=== PATIENT | male | born 1945 | race Caucasian/White ===

== ENCOUNTER 2018-03-16 14:51 | Inpatient (IN) | payer MEDICARE, BC ==
[2018-03-16] VITALS (12 sets, daily range): BP systolic 82–135; BP diastolic 40–78; PULSE 56–88; RESP 12–18; TEMP 97.6–98.2; O2SAT 95–100
[~2018-03-16] VITALS: Ht 182.9 cm; Wt 98.6 kg
[~2018-03-16 14:51] MED LIST: BAYE325T3 PO; BENI40TA30 PO; CLOP75 PO; FURO20 PO; GLUC2.5T2 PO; HUMALOGP SQ; LEVA500T PO; LEVO100T4 PO; NITR0.4S SL; OXYC40; PRIL20CA PO
[2018-03-16] MEDS ORDERED: SODIUM CHLORID 0.9% 500 ML INJ 500 ML IV ONE (15:15)
[2018-03-16] MEDS ORDERED: SODIUM CHLOR 0.9% 250 ML INJ 250 ML IV ONE (15:30)
[2018-03-16 15:43] LABS: AUTOMATED NEUTROPHIL # 3.1 TH/MM3 (1.8-7.7); BASOPHIL % 0.6 % (0.0-2.0); EOSINOPHIL # 0.1 TH/MM3 (0-0.4); EOSINOPHIL % 2.4 % (0.0-4.0); HEMATOCRIT 21.1 % (39.0-51.0); LYMPH % 28.9 % (9.0-44.0); LYMPHOCYTE # 1.7 TH/MM3 (1.0-4.8); MEAN CELL VOLUME 87.1 FL (80.0-100.0); MEAN CORPUSCULAR HEMOGLOBIN 28.5 PG (27.0-34.0); MEAN CORPUSCULAR HGB CONC 32.8 % (32.0-36.0); MEAN PLATELET VOLUME 7.8 FL (7.0-11.0); MONO % 14.9 % (0.0-8.0); MONOCYTE # 0.9 TH/MM3 (0-0.9); NEUT % 53.2 % (16.0-70.0); PLATELET COUNT 177 TH/MM3 (150-450); RED BLOOD COUNT 2.43 MIL/MM3 (4.50-5.90); RED CELL DISTRIBUTION WIDTH 20.1 % (11.6-17.2); WHITE BLOOD COUNT 5.9 TH/MM3 (4.0-11.0)
--- NOTE | 2018-03-16 15:43 | PD ---
HPI Chief Complaint: Abnormal Results Time Seen by Provider: 15:00 Travel History International Travel<30 days: No Contact w/Intl Traveler<30days: No Traveled to known affect area: No History of Present Illness HPI 72-year-old male with a history of heart disease, anemia, chronic cellulitis to his lower legs that presents to the ED for evaluation of low hemoglobin. Per patient she had blood work done by home nurse that show a hemoglobin of 6.2 per patient. Per patient he was told to come here to get a transfusion. He has a history of anemia in the past and he states that he has had transfusions in the past. Per patient but never been able to find out why he is anemic. His only symptom today is that he feels weak and tired and per family has been having this for the past week. He denies any blood in his stool or any nausea or vomiting. He denies any abdominal pain. No chest pain or shortness of breath. He has feels weak and tired. She gets home health to help him with his chronic medical conditions including his wounds to his leg secondary to cellulitis. States that yesterday he had some abdominal pain for the past 3 days that apparently went away on its own yesterday. He has had normal bowel movements per patient. Allergy to codeine, morphine and niacin. States that currently has no pain. He apparently had a pacemaker placed by Dr. Orr a month ago. Per patient he does take a blood thinner. PFSH Past Medical History Arthritis: Yes Blood Disorders: No Anxiety: No Depression: No Heart Rhythm Problems: Yes Cancer: Yes (skin cancers) Cardiovascular Problems: Yes (cad,irregular heart beat) High Cholesterol: Yes Chemotherapy: No Chest Pain: No COPD: Yes Diabetes: Yes Patient Takes Glucophage: No Endocrine: Yes Gastrointestinal Disorders: Yes GERD: Yes Glaucoma: No Genitourinary: No Hepatitis: No Hiatal Hernia: Yes Hypertension: Yes Immune Disorder: No Implanted Vascular Access Dvce: Yes Musculoskeletal: Yes Neurologic: Yes Psychiatric: No Reproductive: No Respiratory: Yes Migraines: Yes Radiation Therapy: No Sleep Apnea: Yes (does not use cpap) Thyroid Disease: Yes Influenza Vaccination: Yes Past Surgical History Abdominal Surgery: Yes (hemmoroidectomy,hernia repair) Body Medical Devices: cardiac stents Cardiac Surgery: Yes (triple by-pass,pacemaker,5 cardiac stents) Coronary Artery Bypass Graft: Yes (TRIPLE BYPASS) Coronary Stent: Yes (X 5) Pacemaker: Yes Thoracic Surgery: Yes (CABG 2001) Other Surgery: Yes Social History Alcohol Use: No Tobacco Use: No (FORMER) Substance Use: No Allergies-Medications (Allergen,Severity, Reaction): Coded Allergies: morphine (Verified Allergy, Severe, HALLUCINATIONS, 03/16/18) codeine (Verified Allergy, Unknown, other, 03/16/18) hallucination niacin (Verified Allergy, Unknown, UNKNOWN, 03/16/18) Reported Meds & Prescriptions Reported Meds & Active Scripts Active Levaquin 500 Mg Tab (Levofloxacin) 500 Mg Tab 500 Mg PO DAILY 6 Days Reported Nitrostat (Nitroglycerin) 0.4 Mg Subl 0.4 Mg SL PRN PRN 1 TAB SL EVERY 5 MINS X 3 PRN CHEST PAIN Lasix 20 Mg Tab (Furosemide) 20 Mg Tab 40 Mg PO DAILY Humalog Insulin Supplemental Scale (Insulin Human Lispro) 100 Units/Ml Inj 1-9 Units SQ TIDACHS Low Dose Lispro Insulin Sliding Scale = Max dose at bedtime:( )units; Max dose at 3am:( ); blood sugars less than 70 take zero insulin units; blood sugars 150-199 take 1 unit; blood sugars 200-249 take 3 units; blood sugars 250-299 take 5 units; blood sugars 300-349 take 7 units; blood sugars greater than 349 take 9 units Benicar (Olmesartan) 40 Mg Tab 40 Mg PO DAILY Leah Aspirin (Aspirin) 325 Mg Tab 81 Mg PO DAILY OxyCONTIN ER (Oxycodone HCl) 40 Mg Tabcr 40 Mg .XX Q 8HRS PRN Prilosec 20 mg (Omeprazole) 20 Mg Capcr 20 Mg PO PRN Plavix (Clopidogrel Bisulfate) 75 Mg Tab 75 Mg PO DAILY Levothyroxine 100 mcg (Levothyroxine Sodium) 100 Mcg Tab 100 Mcg PO DAILY Glucovance 2.5/500 (Glyburide/Metformin) 2.5 Mg-500 Mg Tab 2 Tab PO BID Review of Systems Except as stated in HPI: all other systems reviewed are Neg Physical Exam Narrative GENERAL: SKIN: Warm and dry. Patient does have a stage I healing decubitus ulcer on the sacrum HEAD: Atraumatic. Normocephalic. EYES: Pupils equal and round. No scleral icterus. No injection or drainage. ENT: No nasal bleeding or discharge. Mucous membranes pink and moist. Tongue is midline. No uvula deviation. NECK: Trachea midline. No JVD. CARDIOVASCULAR: Regular rate and rhythm. No murmurs, S3, S4. RESPIRATORY: No accessory muscle use. Clear to auscultation. Breath sounds equal bilaterally. GASTROINTESTINAL: Abdomen soft, non-tender, nondistended. Hepatic and splenic margins not palpable. MUSCULOSKELETAL: Extremities without clubbing, cyanosis, or edema. No obvious deformities. Full range of motion of the upper and lower extremities bilaterally. 2+ pulses bilaterally. NEUROLOGICAL: Awake and alert. No obvious cranial nerve deficits. Motor grossly within normal limits. Five out of 5 muscle strength in the arms and legs. Normal speech. PSYCHIATRIC: Appropriate mood and affect; insight and judgment normal. Data Data Last Documented VS Vital Signs Date Time Temp Pulse Resp B/P (MAP) Pulse Ox O2 Delivery O2 Flow Rate FiO2 03/16/18 15:06 78 17 123/57 (79) 03/16/18 15:06 97.7 98 Room Air Orders Orders Electrocardiogram (03/16/18 15:) Complete Blood Count With Diff (03/16/18 15:) Comprehensive Metabolic Panel (03/16/18 15:) Prothrombin Time / Inr (Pt) (03/16/18 15:) Act Partial Throm Time (Ptt) (03/16/18 15:) Urinalysis - C+S If Indicated (03/16/18 15:) Magnesium (Mg) (03/16/18 15:01) Iv Access Insert/Monitor (03/16/18 15:) Ecg Monitoring (03/16/18 15:) Oximetry (03/16/18 15:) Orthostatic Vital Signs (03/16/18 15:) Type And Screen (03/16/18 15:01) Sodium Chlorid 0.9% 500 Ml Inj (Ns 500 M (03/16/18 15:15) Red Blood Cells (Rbc) (03/16/18 15:21) Blood Product Administration (03/16/18 15:21) Sodium Chlor 0.9% 250 Ml Inj (Ns 250 Ml (03/16/18 15:30) Ckmb (Isoenzyme) Profile (03/16/18 15:34) Troponin I (03/16/18 15:34) Diet Heart Healthy (03/16/18 Dinner) Diet Diabetic (03/16/18 Dinner) Vital Signs (Adult) RM.Q4H (03/16/18 16:50) Iron/Tibc Profile (03/16/18 16:50) Ferritin (03/16/18 16:50) Occult Blood (Hemoccult) Stool (03/16/18 16:50) Hemoglobin (Hgb) (03/17/18 06:00) Hematocrit (Hct) (03/17/18 06:00) Blood Glucose Goal (Criteria) (03/16/18 16:50) Hypoglycemia 70 Mg/Dl Or < (03/16/18 16:50) Notify Dr: Other (03/16/18 16:50) Dextrose 50% In Wiley (Vial) Inj (D50w (Vi (03/16/18 17:00) Glucagon Inj (Glucagon Inj) (03/16/18 17:00) Admit Order (Ed Use Only) (03/16/18 16:53) Insulin Aspart Supplemtl Scale (Novolog (03/16/18 17:00) Levothyroxine (Synthroid) (03/17/18 06:00) Labs Laboratory Tests Test 03/16/18 15:15 03/16/18 16:30 White Blood Count 5.9 TH/MM3 Red Blood Count 2.43 MIL/MM3 Hemoglobin 6.9 GM/DL Hematocrit 21.1 % Mean Corpuscular Volume 87.1 FL Mean Corpuscular Hemoglobin 28.5 PG Mean Corpuscular Hemoglobin Concent 32.8 % Red Cell Distribution Width 20.1 % Platelet Count 177 TH/MM3 Mean Platelet Volume 7.8 FL Neutrophils (%) (Auto) 53.2 % Lymphocytes (%) (Auto) 28.9 % Monocytes (%) (Auto) 14.9 % Eosinophils (%) (Auto) 2.4 % Basophils (%) (Auto) 0.6 % Neutrophils # (Auto) 3.1 TH/MM3 Lymphocytes # (Auto) 1.7 TH/MM3 Monocytes # (Auto) 0.9 TH/MM3 Eosinophils # (Auto) 0.1 TH/MM3 Basophils # (Auto) 0.0 TH/MM3 CBC Comment DIFF FINAL Differential Comment Prothrombin Time 19.4 SEC Prothromb Time International Ratio 1.9 RATIO Activated Partial Thromboplast Time 38.4 SEC Blood Urea Nitrogen 58 MG/DL Creatinine 1.84 MG/DL Random Glucose 134 MG/DL Total Protein 7.1 GM/DL Albumin 3.1 GM/DL Calcium Level 8.6 MG/DL Magnesium Level 2.8 MG/DL Alkaline Phosphatase 110 U/L Aspartate Amino Transf (AST/SGOT) 15 U/L Alanine Aminotransferase (ALT/SGPT) 17 U/L Total Bilirubin 0.9 MG/DL Sodium Level 132 MEQ/L Potassium Level 4.1 MEQ/L Chloride Level 93 MEQ/L Carbon Dioxide Level 29.6 MEQ/L Anion Gap 9 MEQ/L Estimat Glomerular Filtration Rate 36 ML/MIN Total Creatine Kinase 14 U/L Troponin I 0.02 NG/ML MDM Medical Decision Making Medical Screen Exam Complete: Yes Emergency Medical Condition: Yes Medical Record Reviewed: Yes Interpretation(s) CBC & BMP Diagram 03/16/18 15:15 Total Protein 7.1, Albumin 3.1 L, Calcium Level 8.6, Magnesium Level 2.8 H, Alkaline Phosphatase 110, Aspartate Amino Transf (AST/SGOT) 15, Alanine Aminotransferase (ALT/SGPT) 17, Total Bilirubin 0.9 troponin and CK WNL Differential Diagnosis Rectal bleeding versus anemia versus symptomatic anemia versus ACS versus chest pain versus a typical chest pain Narrative Course 72-year-old male that presents to the ED for evaluation of low hemoglobin. Patient was properly examined and was found to have signs and symptoms consistent appears to be symptomatic hemoglobin. Hemoccult was done by me and was negative. Labs and imaging order. Patient was started on 2 doses of blood. Labs showed low hemoglobin. Patient will be started on blood. My attending Dr Mobley made aware of findings and agrees with plan. He recommends for units of blood given. This was told to the family and patient agree with plan. Patient was admitted for symptomatic anemia to Dr Mcclure who agreed with admission. HemaPrompt Point of Care Internal Pos. & Neg. Controls: Passed Fecal Specimen Occult Blood: Negative Diagnosis Primary Impression: Symptomatic anemia Admitting Information Admitting Physician Requests: Admit Alcides Shah March 16, 2018 15:43
[2018-03-16 15:50] LABS: HEMOGLOBIN 6.9 GM/DL (13.0-17.0); INTERNATIONAL NORMALIZED RATIO 1.9 RATIO; PROTHROMBIN TIME - PATIENT 19.4 SEC (9.8-11.6)
[2018-03-16 15:59] LABS: ALBUMIN 3.1 GM/DL (3.4-5.0); AST (GOT) 15 U/L (15-37); BICARBONATE 29.6 MEQ/L (21.0-32.0); BLOOD UREA NITROGEN 58 MG/DL (7-18); CALCIUM 8.6 MG/DL (8.5-10.1); CHLORIDE 93 MEQ/L (98-107); CREATININE 1.84 MG/DL (0.60-1.30); GLOMERULAR FILTRATION RATE 36 ML/MIN (>89); GLUCOSE,RANDOM 134 MG/DL (74-106); MAGNESIUM 2.8 MG/DL (1.5-2.5); SODIUM (NA) 132 MEQ/L (136-145)
[2018-03-16 16:00] LABS: ALT (GPT) 17 U/L (12-78)
[2018-03-16 16:02] LABS: ALKALINE PHOSPHATASE 110 U/L (45-117); TOTAL BILIRUBIN ADULT 0.9 MG/DL (0.2-1.0); TOTAL PROTEIN 7.1 GM/DL (6.4-8.2)
[2018-03-16] MEDS ORDERED: DEXTROSE 50% IN WATER 50 ML VIAL(D50) IV PUSH PRN (17:00)
[2018-03-16] MEDS ORDERED: GLUCAGON 1 MG/ML VIAL OTHER PRN (17:00)
[2018-03-16 17:02] LABS: TROPONIN I 0.02 NG/ML (0.02-0.05)
[2018-03-16] MEDS: INSULIN ASPART SUPPLEMENTAL SCALE SQ SCH ×2 (17:21→20:17)
--- NOTE | 2018-03-16 18:02 | HHI.HP ---
[facility] Service [facility] Primary Care Physician Cyrus Hawk MD Admission Diagnosis acute symptomatic anemia, hypotension, weakness Diagnoses: (1) Symptomatic anemia Diagnosis: Principal Chief Complaint: fatigue Travel History International Travel<30 Days: No Contact w/Intl Traveler <30 Da: No Traveled to Known Affected Are: No History of Present Illness patient is a 72 y/o male with history of atrial fibrillation- on Xarelto, hypertension, diabetes mellitus who presented to ER with fatigue. he says that he's been feeling weak for the past couple of days. he had a blood work today and was found to have a Hb of 6.3 for which he was advised to come to ER by his PCP. he denies any chest pain, sob, rectal bleed, black stools or nausea. however he says that he had some generalized abdominal pain which has almost resolved. Review of Systems Constitutional: COMPLAINS OF: Fatigue, DENIES: Fever, Weight loss, Chills, Night Sweats Eyes: DENIES: Blurred vision, Diplopia, Vision loss, Double Vision Ears, nose, mouth, throat: DENIES: Tinnitus, Vertigo, Throat pain, Epistaxis Respiratory: DENIES: Apneas, Cough, Snoring, Wheezing, Hemoptysis, Sputum production, Shortness of breath Cardiovascular: DENIES: Chest pain, Palpitations, Syncope, Dyspnea on Exertion , PND, Lower Extremity Edema, Orthopnea, Claudication Gastrointestinal: DENIES: Abdominal pain, Black stools, Bloody stools, Constipation, Diarrhea, Nausea, Vomiting, Difficulty Swallowing, Anorexia Genitourinary: DENIES: Urinary frequency, Urgency, Hematuria, Dysuria Musculoskeletal: DENIES: Joint pain, Muscle aches, Stiffness, Joint Swelling Integumentary: DENIES: Rash Neurologic: DENIES: Abnormal gait, Headache, Localized weakness, Paresthesias, Seizures, Speech Problems, Tremor, Poor Balance Psychiatric: DENIES: Anxiety, Confusion, Mood changes, Depression, Hallucinations, Agitation, Suicidal Ideation, Homicidal Ideation, Delusions Past Family Social History Past Medical History atrial fibrillation/ hypertension/ diabetes. Past Surgical History cardiac stent placement/ CABG Reported Medications Nitrostat (Nitroglycerin) 0.4 Mg Subl 0.4 Mg SL PRN PRN 1 TAB SL EVERY 5 MINS X 3 PRN CHEST PAIN Lasix 20 Mg Tab (Furosemide) 20 Mg Tab 40 Mg PO DAILY Humalog Insulin Supplemental Scale (Insulin Human Lispro) 100 Units/Ml Inj 1-9 Units SQ TIDACHS Low Dose Lispro Insulin Sliding Scale = Max dose at bedtime:( )units; Max dose at 3am:( ); blood sugars less than 70 take zero insulin units; blood sugars 150-199 take 1 unit; blood sugars 200-249 take 3 units; blood sugars 250-299 take 5 units; blood sugars 300-349 take 7 units; blood sugars greater than 349 take 9 units Benicar (Olmesartan) 40 Mg Tab 40 Mg PO DAILY Leah Aspirin (Aspirin) 325 Mg Tab 81 Mg PO DAILY OxyCONTIN ER (Oxycodone HCl) 40 Mg Tabcr 40 Mg .XX Q 8HRS PRN Prilosec 20 mg (Omeprazole) 20 Mg Capcr 20 Mg PO PRN Plavix (Clopidogrel Bisulfate) 75 Mg Tab 75 Mg PO DAILY Levothyroxine 100 mcg (Levothyroxine Sodium) 100 Mcg Tab 100 Mcg PO DAILY Glucovance 2.5/500 (Glyburide/Metformin) 2.5 Mg-500 Mg Tab 2 Tab PO BID Allergies: Coded Allergies: morphine (Verified Allergy, Severe, HALLUCINATIONS, 03/16/18) codeine (Verified Allergy, Unknown, other, 03/16/18) hallucination niacin (Verified Allergy, Unknown, UNKNOWN, 03/16/18) Active Ordered Medications Inpatient Medications Dextrose (D50w (Vial) Inj) 50 ml UNSCH PRN IV PUSH HYPOGLYCEMIA-SEE COMMENTS; Start 03/16/18 at 17:00 Glucagon (Glucagon Inj) 1 mg UNSCH PRN OTHER HYPOGLYCEMIA-SEE COMMENTS; Start 03/16/18 at 17:00 Insulin Aspart (NovoLOG SUPPLEMENTAL SCALE) 1 ACHS SLIDING SCALE SQ Last administered on 03/16/18at 17:21; Start 03/16/18 at 17:00 Levothyroxine Sodium (Synthroid) 100 mcg DAILY@0600 PO ; Start 03/17/18 at 06:00 Sodium Chloride 250 ml @ 15 mls/hr ONCE ONCE IV Last administered on at 17:11; Start 03/16/18 at 15:30; Stop 03/17/18 at 08:09 Social History doesn't smoke or drink. Physical Exam Vital Signs Vital Signs Date Time Temp Pulse Resp B/P (MAP) Pulse Ox O2 Delivery O2 Flow Rate FiO2 03/16/18 17:25 97.9 73 16 129/58 99 03/16/18 17:08 98.1 56 15 114/57 99 03/16/18 15:06 78 17 123/57 (79) 03/16/18 15:06 97.7 17 98 Room Air 03/16/18 15:06 89 15 99 Room Air 03/16/18 14:56 98.2 57 18 82/40 (54) 95 Physical Exam GENERAL: This is a well-nourished, well-developed patient, in no apparent distress. SKIN: No rashes, ecchymoses or lesions. Cool and dry. HEAD: Atraumatic. Normocephalic. No temporal or scalp tenderness. EYES: Pupils equal round and reactive. Extraocular motions intact. No scleral icterus. No injection or drainage. ENT: Nose without bleeding, purulent drainage or septal hematoma. Throat without erythema, tonsillar hypertrophy or exudate. Uvula midline. Airway patent. NECK: Trachea midline. No JVD or lymphadenopathy. Supple, nontender, no meningeal signs. CARDIOVASCULAR: Regular rate and rhythm without murmurs, gallops, or rubs. RESPIRATORY: Clear to auscultation. Breath sounds equal bilaterally. No wheezes , rales, or rhonchi. GASTROINTESTINAL: Abdomen soft, non-tender, nondistended. No hepato-splenomegaly , or palpable masses. No guarding. MUSCULOSKELETAL: Extremities without clubbing, cyanosis, or edema. No joint tenderness, effusion, or edema noted. No calf tenderness. Negative Homans sign bilaterally. NEUROLOGICAL: Awake and alert. Cranial nerves II through XII intact. Motor and sensory grossly within normal limits. Five out of 5 muscle strength in all muscle groups. Normal speech. Laboratory Laboratory Tests Test 03/16/18 15:15 03/16/18 16:30 White Blood Count 5.9 Red Blood Count 2.43 Hemoglobin 6.9 Hematocrit 21.1 Mean Corpuscular Volume 87.1 Mean Corpuscular Hemoglobin 28.5 Mean Corpuscular Hemoglobin Concent 32.8 Red Cell Distribution Width 20.1 Platelet Count 177 Mean Platelet Volume 7.8 Neutrophils (%) (Auto) 53.2 Lymphocytes (%) (Auto) 28.9 Monocytes (%) (Auto) 14.9 Eosinophils (%) (Auto) 2.4 Basophils (%) (Auto) 0.6 Neutrophils # (Auto) 3.1 Lymphocytes # (Auto) 1.7 Monocytes # (Auto) 0.9 Eosinophils # (Auto) 0.1 Basophils # (Auto) 0.0 CBC Comment DIFF FINAL Differential Comment Prothrombin Time 19.4 Prothromb Time International Ratio 1.9 Activated Partial Thromboplast Time 38.4 Blood Urea Nitrogen 58 Creatinine 1.84 Random Glucose 134 Total Protein 7.1 Albumin 3.1 Calcium Level 8.6 Magnesium Level 2.8 Alkaline Phosphatase 110 Aspartate Amino Transf (AST/SGOT) 15 Alanine Aminotransferase (ALT/SGPT) 17 Total Bilirubin 0.9 Sodium Level 132 Potassium Level 4.1 Chloride Level 93 Carbon Dioxide Level 29.6 Anion Gap 9 Estimat Glomerular Filtration Rate 36 Total Creatine Kinase 14 Troponin I 0.02 Result Diagram: 03/16/18 1515 03/16/18 1515 Caprini VTE Risk Assessment Caprini VTE Risk Assessment: Mod/High Risk (score >= 2) Caprini Risk Assessment Model Point Value = 1 Point Value = 2 Point Value = 3 Point Value = 5 Age 41-60 Minor surgery BMI > 25 kg/m2 Swollen legs Varicose veins or History of unexplained or recurrent spontaneous Oral contraceptives or hormone replacement Sepsis (< 1 month) Serious lung disease, including pneumonia (< 1 month) Abnormal pulmonary function Acute myocardial infarction Congestive heart failure (< 1 month) History of inflammatory bowel disease Medical patient at bed rest Age 61-74 Arthroscopic surgery Major open surgery (> 45 min) Laparoscopic surgery (> 45 min) Malignancy Confined to bed (> 72 hours) Immobilizing plaster cast Central venous access Age >= 75 History of VTE Family history of VTE Factor V Leiden Prothrombin [id number] Lupus anticoagulant Anticardiolipin antibodies Elevated serum homocysteine Heparin-induced thrombocytopenia Other congenital or acquired thrombophilia Stroke (< 1 month) Elective arthroplasty Hip, pelvis, or leg fracture Acute spinal cord injury (< 1 month) Prophylaxis Regimen Total Risk Factor Score Risk Level Prophylaxis Regimen 0-1 Low Early ambulation 2 Moderate Order ONE of the following: *Sequential Compression Device (SCD) *Heparin 5000 units SQ BID 3-4 Higher Order ONE of the following medications: *Heparin 5000 units SQ TID *Enoxaparin/Lovenox 40 mg SQ daily (WT < 150 kg, CrCl > 30 mL/min) *Enoxaparin/Lovenox 30 mg SQ daily (WT < 150 kg, CrCl > 10-29 mL/min) *Enoxaparin/Lovenox 30 mg SQ BID (WT < 150 kg, CrCl > 30 mL/min) AND/OR *Sequential Compression Device (SCD) 5 or more Highest Order ONE of the following medications: *Heparin 5000 units SQ TID (Preferred with Epidurals) *Enoxaparin/Lovenox 40 mg SQ daily (WT < 150 kg, CrCl > 30 mL/min) *Enoxaparin/Lovenox 30 mg SQ daily (WT < 150 kg, CrCl > 10-29 mL/min) *Enoxaparin/Lovenox 30 mg SQ BID (WT < 150 kg, CrCl > 30 mL/min) AND *Sequential Compression Device (SCD) Assessment and Plan Assessment and Plan A/P - symptomatic anemia- patient is on Xarelto will transfuse with PRBC and continue to monitor H/H- will check iron panel- check the stool for blood- and consult GI -CAD- s/p CABG and stent placement/ a-fib -s/p defibrillator placement; hold Xarelto and BB for now- will monitor home meds to be verified and updated. -diabetes mellitus; accu-check with SSI -renal insufficiency with unknown duration- possible acute kidney injury; start on IV fluid and monitor the renal function. -wound on the right leg/ left little toe; consulted wound care. Discussed Condition With ER and the patient. Physician Certification 2 Midnight Certification Type: Admission for Inpatient Services Order for Inpatient Services The services are ordered in accordance with Medicare regulations or non- Medicare payer requirements, as applicable. In the case of services not specified as inpatient-only, they are appropriately provided as inpatient services in accordance with the 2-midnight benchmark. Estimated LOS (days): 2 days is the estimated time the patient will need to remain in the hospital, assuming treatment plan goals are met and no additional complications. Post-Hospital Plan: Not yet determined Shabnam Caballero MD March 16, 2018 18:02
[2018-03-16] MEDS: SODIUM CHLOR 0.9% 1000 ML INJ 1,000 ML IV SCH ×2 (18:06→20:16)
--- NOTE | 2018-03-16 18:07 | PD ---
Data Data Last Documented VS Vital Signs Date Time Temp Pulse Resp B/P (MAP) Pulse Ox O2 Delivery O2 Flow Rate FiO2 03/16/18 15: 78 17 123/57 (79) 03/16/18 15:06 97.7 98 Room Air Orders Orders Electrocardiogram (03/16/18 15:) Complete Blood Count With Diff (03/16/18 15:) Comprehensive Metabolic Panel (03/16/18 15:) Prothrombin Time / Inr (Pt) (03/16/18:) Act Partial Throm Time (Ptt) (03/16/18 15:) Urinalysis - C+S If Indicated (03/16/18 15:) Magnesium (Mg) (03/16/18 15:) Iv Access Insert/Monitor (03/16/18:) Ecg Monitoring (03/16/18 15:) Oximetry (03/16/18 15:) Orthostatic Vital Signs (03/16/18 15:) Type And Screen (03/16/18 15:) Sodium Chlorid 0.9% 500 Ml Inj (Ns 500 M (03/16/18 15:15) Red Blood Cells (Rbc) (03/16/18 15:21) Blood Product Administration (03/16/18 15:21) Sodium Chlor 0.9% 250 Ml Inj (Ns 250 Ml (03/16/18 15:30) Ckmb (Isoenzyme) Profile (03/16/18 15:34) Troponin I (03/16/18 15:34) Diet Heart Healthy (03/16/18 Dinner) Diet Diabetic (03/16/18 Dinner) Vital Signs (Adult) RM.Q4H (03/16/18 16:50) Iron/Tibc Profile (03/16/18 16:50) Ferritin (03/16/18 16:50) Occult Blood (Hemoccult) Stool (03/16/18 16:50) Hemoglobin (Hgb) (03/17/18 06:00) Hematocrit (Hct) (03/17/18 06:00) Blood Glucose Goal (Criteria) (03/16/18 16:50) Hypoglycemia 70 Mg/Dl Or < (03/16/18 16:50) Notify Dr: Other (03/16/18 16:50) Dextrose 50% In Wiley (Vial) Inj (D50w (Vi (03/16/18 17:00) Glucagon Inj (Glucagon Inj) (03/16/18 17:00) Admit Order (Ed Use Only) (03/16/18 16:53) Insulin Aspart Supplemtl Scale (Novolog (03/16/18 17:00) Levothyroxine (Synthroid) (03/17/18 06:00) Labs Laboratory Tests Test 03/16/18 15:15 03/16/18 16:30 White Blood Count 5.9 TH/MM3 Red Blood Count 2.43 MIL/MM3 Hemoglobin 6.9 GM/DL Hematocrit 21.1 % Mean Corpuscular Volume 87.1 FL Mean Corpuscular Hemoglobin 28.5 PG Mean Corpuscular Hemoglobin Concent 32.8 % Red Cell Distribution Width 20.1 % Platelet Count 177 TH/MM3 Mean Platelet Volume 7.8 FL Neutrophils (%) (Auto) 53.2 % Lymphocytes (%) (Auto) 28.9 % Monocytes (%) (Auto) 14.9 % Eosinophils (%) (Auto) 2.4 % Basophils (%) (Auto) 0.6 % Neutrophils # (Auto) 3.1 TH/MM3 Lymphocytes # (Auto) 1.7 TH/MM3 Monocytes # (Auto) 0.9 TH/MM3 Eosinophils # (Auto) 0.1 TH/MM3 Basophils # (Auto) 0.0 TH/MM3 CBC Comment DIFF FINAL Differential Comment Prothrombin Time 19.4 SEC Prothromb Time International Ratio 1.9 RATIO Activated Partial Thromboplast Time 38.4 SEC Blood Urea Nitrogen 58 MG/DL Creatinine 1.84 MG/DL Random Glucose 134 MG/DL Total Protein 7.1 GM/DL Albumin 3.1 GM/DL Calcium Level 8.6 MG/DL Magnesium Level 2.8 MG/DL Alkaline Phosphatase 110 U/L Aspartate Amino Transf (AST/SGOT) 15 U/L Alanine Aminotransferase (ALT/SGPT) 17 U/L Total Bilirubin 0.9 MG/DL Sodium Level 132 MEQ/L Potassium Level 4.1 MEQ/L Chloride Level 93 MEQ/L Carbon Dioxide Level 29.6 MEQ/L Anion Gap 9 MEQ/L Estimat Glomerular Filtration Rate 36 ML/MIN Total Creatine Kinase 14 U/L Troponin I 0.02 NG/ML MDM Diagnosis Primary Impression: Symptomatic anemia Dominic Mobley MD March 16, 2018 18:07
[2018-03-16 20:30] LABS: % SATURATION IRON PROFILE 12.5 % (20-50); IRON (FE) 35 MCG/DL (65-175); TOTAL IRON BINDING CAPACITY 280 MCG/DL (250-450)
[2018-03-16 20:33] LABS: FERRITIN 58 NG/ML (26-388)
[2018-03-16] MEDS ORDERED: FUROSEMIDE 20 MG/2 ML VIAL IV PUSH ONE (21:15)
[2018-03-17] VITALS: BP 134/70; PULSE 76; RESP 18; TEMP 98.1; O2SAT 99
[2018-03-17 01:11] VITALS: BP 113/68; PULSE 83; RESP 14; TEMP 97.9; O2SAT 99
[2018-03-17 04:00] VITALS: BP 142/67; PULSE 76; RESP 18; TEMP 98.5; O2SAT 100
[2018-03-17] MEDS: SODIUM CHLOR 0.9% 1000 ML INJ 1,000 ML IV SCH (05:55)
[2018-03-17] MEDS ORDERED: LEVOTHYROXINE SODIUM 100 MCG TAB PO SCH (06:00)
[2018-03-17] MEDS: INSULIN ASPART SUPPLEMENTAL SCALE SQ SCH ×2 (08:08→11:19)
[2018-03-17 08:12] VITALS: BP 116/58; PULSE 80; RESP 20; TEMP 98.2; O2SAT 97
[2018-03-17 08:32] LABS: HEMOGLOBIN 8.7 GM/DL (13.0-17.0)
[2018-03-17 09:01] LABS: BICARBONATE 28.2 MEQ/L (21.0-32.0); CALCIUM 8.7 MG/DL (8.5-10.1); CREATININE 1.51 MG/DL (0.60-1.30)
--- NOTE | 2018-03-17 11:11 | PD.CONS ---
HPI History of Present Illness This is a 72 year old with PMH significant for CAD S/P CABG x 3, hyperlipidemia , HTN, a-fib on Xarelto, DM, hypothyroid, CHF, and currently being treated by home health for toe cellulitis. Pt presented to the ER yesterday with his only complaint being fatigue. Pt reports fatigue for quite some time, had labs done by home health that revealed a hgb of 6.3 and he was sent to the ER for further evaluation. Pt is on Xarelto and reports he bleeds very easily and has had multiple episodes of significant bleeding after bumping into something or being scratched. During previous admission in the beginning of this month for CHF exacerbation hgb was 6.2 on February 18 and pt had 2 U of PRBCs transfused. Denies any other previous history of anemia. Denies history of GIB. Denies any GI symptoms at this time including nausea, vomiting, acid reflux, heartburn, abdominal pain, constipation, diarrhea, obvious GIB. Pt does report that he was having intermittent mid abdominal pain that lasted about a week and has since resolved. Unable to be more descriptive. Does report recent weight loss but states secondary to diruesis. Has never had EGD. Last colonoscopy 4 years ago in [place] and he states normal exam. Denies ETOH and smoking. (Tammy Borrero) PFSH Past Medical History CAD S/P CABG x 3 Hyperlipidemia HTN Atrial fibrillation on Xarelto DM Hypothyroid CHF Toe cellulitis Past Surgical History CABG x 3 Pacemaker/Defibrillator Colonoscopy (Tammy Borrero) Coded Allergies: morphine (Verified Allergy, Severe, HALLUCINATIONS, 03/16/18) codeine (Verified Allergy, Unknown, other, 03/16/18) hallucination niacin (Verified Allergy, Unknown, UNKNOWN, 03/16/18) Social History Denies smoking and ETOH (Tammy Borrero) Review of Systems Gastrointestinal: DENIES: Abdominal pain, Black stools, Bloody stools, Constipation, Diarrhea, Nausea, Vomiting, Swelling of Abdomen, Heartburn, Hematemesis (Tammy Borrero) GI Exam Vitals I&O Vital Signs Date Time Temp Pulse Resp B/P (MAP) Pulse Ox O2 Delivery O2 Flow Rate FiO2 03/17/18 08:12 98.2 80 20 116/58 (77) 97 03/17/18 04:00 98.5 76 18 142/67 (92) 100 03/17/18 01:11 97.9 83 14 113/68 99 03/17/18 00:00 98.1 76 18 134/70 (91) 99 03/16/18 22:55 98.0 75 12 111/56 99 03/16/18 22:23 98.1 76 14 134/74 99 03/16/18 20:09 98.2 76 12 113/55 100 03/16/18 20:00 97.9 59 18 132/64 (86) 100 03/16/18 18:44 97.8 78 16 130/78 (95) 99 03/16/18 18:19 97.6 85 16 130/65 (86) 99 Room Air 03/16/18 17:25 97.9 73 16 129/58 99 03/16/18 17:08 98.1 56 15 114/57 99 03/16/18 16:40 97.8 74 16 129/75 (93) 100 Room Air 03/16/18 15:30 97.8 88 15 135/75 (95) 100 Room Air 03/16/18 15:06 78 17 123/57 (79) 03/16/18 15:06 97.7 17 98 Room Air 03/16/18 15:06 89 15 99 Room Air 03/16/18 14:56 98.2 57 18 82/40 (54) 95 I/O 03/16/18 03/16/18 03/16/18 03/17/18 03/17/18 03/17/18 06:59 14:59 22:59 06:59 14:59 22:59 Intake Total 1015 ml 450 ml 360 ml Output Total 1600 ml Balance 1015 ml -1150 ml 360 ml Intake Oral 360 ml IV Total 500 ml Packed Cells 400 ml 400 ml Blood Product IV Normal Saline Flush 115 ml 50 ml Output Urine Total 1600 ml Laboratory Test 03/16/18 15:15 03/16/18 16:30 03/17/18 07:41 White Blood Count 5.9 TH/MM3 Red Blood Count 2.43 MIL/MM3 Hemoglobin 6.9 GM/DL 8.7 GM/DL Hematocrit 21.1 % 26.0 % Mean Corpuscular Volume 87.1 FL Mean Corpuscular Hemoglobin 28.5 PG Mean Corpuscular Hemoglobin Concent 32.8 % Red Cell Distribution Width 20.1 % Platelet Count 177 TH/MM3 Mean Platelet Volume 7.8 FL Neutrophils (%) (Auto) 53.2 % Lymphocytes (%) (Auto) 28.9 % Monocytes (%) (Auto) 14.9 % Eosinophils (%) (Auto) 2.4 % Basophils (%) (Auto) 0.6 % Neutrophils # (Auto) 3.1 TH/MM3 Lymphocytes # (Auto) 1.7 TH/MM3 Monocytes # (Auto) 0.9 TH/MM3 Eosinophils # (Auto) 0.1 TH/MM3 Basophils # (Auto) 0.0 TH/MM3 CBC Comment DIFF FINAL Differential Comment Prothrombin Time 19.4 SEC Prothromb Time International Ratio 1.9 RATIO Activated Partial Thromboplast Time 38.4 SEC Blood Urea Nitrogen 58 MG/DL 54 MG/DL Creatinine 1.84 MG/DL 1.51 MG/DL Random Glucose 134 MG/DL 150 MG/DL Total Protein 7.1 GM/DL Albumin 3.1 GM/DL Calcium Level 8.6 MG/DL 8.7 MG/DL Magnesium Level 2.8 MG/DL Alkaline Phosphatase 110 U/L Aspartate Amino Transf (AST/SGOT) 15 U/L Alanine Aminotransferase (ALT/SGPT) 17 U/L Total Bilirubin 0.9 MG/DL Sodium Level 132 MEQ/L 134 MEQ/L Potassium Level 4.1 MEQ/L 4.1 MEQ/L Chloride Level 93 MEQ/L 97 MEQ/L Carbon Dioxide Level 29.6 MEQ/L 28.2 MEQ/L Anion Gap 9 MEQ/L 9 MEQ/L Estimat Glomerular Filtration Rate 36 ML/MIN 46 ML/MIN Iron Level 35 MCG/DL Total Iron Binding Capacity 280 MCG/DL Percent Iron Saturation 12.5 % Ferritin 58 NG/ML Total Creatine Kinase 14 U/L Troponin I 0.02 NG/ML Physical Examination HEENT: Normocephalic; atraumatic CHEST: Even/unlabored CARDIAC: RRR ABDOMEN: Distended, soft, nontender, bowel sounds active EXTREMITIES: BLE edema and weeping RES COUNSELOR: Alert and oriented times three. (Tammy Borrero) Assessment and Plan Plan Assessment: - Anemia- normocytic, with no obvious GIB Pt had recent admission in the beginning of this month for CHF exacerbation, hgb was 6.9 and he had 2 U PRBCs- Pt does report bleeding easy from being on Xarelto and multiple episodes where he has bumped into something or been scratched and had profuse bleeding- denies any other previous history of anemia. Denies any GI symptoms at this time- does report one week of intermittent mid abdominal pain which has since resolved Has never had EGD Last colonoscopy 4 years ago and states normal exam - CAD S/P CABG x 3, hyperlipidemia, HTN, a-fib on Xarelto, DM, hypothyroid, CHF, and toe cellulitis per attending Pt states does not want to stay in the hospital until Tuesday for GI procedures , reports that he just had a long hospital admission. Plan: Hemoccult stool EGD/colonoscopy Tuesday if agreeable Monitor H/H Transfuse as needed Hold Xarelto Protonix CT abdomen and pelvis Further recommendations based on findings of above and clinical course Pt has been seen and examined by myself and Dr. Ryan and this note is written on his behalf (Tammy Borrero) Physician Comments Seen with Tammy, plan for EGD and Colonoscopy after holding anticoagulant for 48 hours, tentatively tuesday. Procedure discussed and agreed to proceed with that. Thank you for the consult. (Myra Ryan MD) Tammy Borrero Mar 17, 2018 11:11 Myra Ryan MD Mar 17, 2018 13:02
[2018-03-17 11:31] VITALS: BP 138/67; PULSE 77; RESP 20; TEMP 98; O2SAT 99
[2018-03-17] MEDS ORDERED: ACETAMINOPHEN 325 MG TAB PO PRN (12:00)
[2018-03-17] MEDS ORDERED: DIATRIZOATE MEGLUM/DIATRIZOATE SOD 9 ML CUP PO ONE (13:00)
[2018-03-17 13:36] VITALS: RESP 16
--- NOTE | 2018-03-17 14:48 | EKG ---
Date Performed: 03/16/2018 Time Performed: 15:09:11 PTAGE: 72 years EKG: ATRIAL FIBRILLATION/FLUTTER MODERATE INTRAVENTRICULAR CONDUCTION DELAY ST DEVIATION AND MOD ERATE T-WAVE ABNORMALITY, CONSIDER ANTEROLATERAL ISCHEMIA ST DEVIATION AND MODERATE T-WAVE ABNORMALIT Y, CONSIDER INFERIOR ISCHEMIA ABNORMAL ECG Compared to PREVIOUS TRACING , atrial fibrillation/flutter has replaced Sinus rhythm . Diffuse T-wave changes are somewhat more prominent, consider ischemia. PREVIOUS TRACIN12/12/2015 07.15 DOCTOR: John Obrien Interpretating Date/Time 03/17/2018 14:47:15
--- NOTE | 2018-03-17 18:43 | HHI.PR ---
Subjective Remarks Patient reported having black stool this morning and a bowel movement Otherwise no abdominal pain chest pain dizziness or lightheadedness Patient seen by GI planned for EGD colonoscopy on Tuesday however patient refused and he wants to leave AMA Objective Vitals Vital Signs Date Time Temp Pulse Resp B/P (MAP) Pulse Ox O2 Delivery O2 Flow Rate FiO2 03/17/18 13:36 16 03/17/18 11:31 98.0 77 20 138/67 (90) 99 03/17/18 08:12 98.2 80 20 116/58 (77) 97 03/17/18 04:00 98.5 76 18 142/67 (92) 100 03/17/18 01:11 97.9 83 14 113/68 99 03/17/18 00:00 98.1 76 18 134/70 (91) 99 03/16/18 22:55 98.0 75 12 111/56 99 03/16/18 22:23 98.1 76 14 134/74 99 03/16/18 20:09 98.2 76 12 113/55 100 03/16/18 20:00 97.9 59 18 132/64 (86) 100 03/16/18 18:44 97.8 78 16 130/78 (95) 99 I/O 03/16/18 03/16/18 03/16/18 03/17/18 03/17/18 03/17/18 07:00 15:00 23:00 07:00 15:00 23:00 Intake Total 1015 ml 450 ml 360 ml Output Total 1600 ml Balance 1015 ml -1150 ml 360 ml Intake Oral 360 ml IV Total 500 ml Packed Cells 400 ml 400 ml Blood Product IV Normal Saline Flush 115 ml 50 ml Output Urine Total 1600 ml Result Diagram: 03/17/18 0741 03/17/18 0741 Objective Remarks GENERAL: This is a well-nourished, well-developed patient, in no apparent distress. CARDIOVASCULAR: RRR, no gallops, or rubs. RESPIRATORY: Fair air entry bilaterally. No W, R, or R GASTROINTESTINAL: Abdomen soft, non-tender, nondistended. Positive bowel sounds MUSCULOSKELETAL: Extremities without clubbing, cyanosis, or edema. Pedal pulses appreciated NEUROLOGICAL: Awake and alert. Moves all extremity. Normal speech.no focal neurological deficit A/P Problem List: (1) Symptomatic anemia ICD Code: D64.9 - Anemia, unspecified Status: Acute Assessment and Plan A/P - symptomatic anemia- patient is on Xarelto Status post transfuse with PRBC and continue to monitor H/H- will check iron panel-check the stool for blood- and consult GI -CAD- s/p CABG and stent placement/ a-fib -s/p defibrillator placement; hold Xarelto and BB for now- will monitor home meds to be verified and updated. -diabetes mellitus; accu-check with SSI -renal insufficiency with unknown duration- possible acute kidney injury; start on IV fluid and monitor the renal function. -wound on the right leg/ left little toe; consulted wound care. 03/17: Patient stable hemoglobin increased from 6.9-8.7 after transfusion, INR is 1.9 however patient is on Xarelto, I explained to him in the very length he wants to go AMA I explained that with him having active bleeding he will need to be monitored until done with the procedure however patient refused and later on today he decided to leave AMA Left AMA Condition on discharge: Guarded due to GI bleed Regular Diet as tolerated Ad Nhung activity Rx written: None Follow-up with primary care physician, or go to ED or call 911 if symptoms getting worse Thaddeus Encarnacion MD Mar 17, 2018 18:43
== END 2018-03-17 15:35 | disposition left against medical advice (07) | DRG 812 ==
LOC: NEPC 14:51 → NEDH 16:54 → N05B 18:44
PROVIDERS: ADMIT Hospitalist; ATTEND Hospitalist
PROC: 30233N1 Transfusion of Nonautologous Red Blood Cells into Peripheral Vein, Percutaneous Approach (ICD-10-PCS; principal; 2018-03-16)
DX: D64.9 Anemia, unspecified (principal); L89.151 Pressure ulcer of sacral region, stage 1; N17.9 Acute kidney failure, unspecified; I95.9 Hypotension, unspecified; I11.0 Hypertensive heart disease with heart failure; I50.9 Heart failure, unspecified; I48.91 Unspecified atrial fibrillation; E11.9 Type 2 diabetes mellitus without complications; L03.032 Cellulitis of left toe; J44.9 Chronic obstructive pulmonary disease, unspecified; E78.5 Hyperlipidemia, unspecified; I25.10 Atherosclerotic heart disease of native coronary artery without angina pectoris; I49.9 Cardiac arrhythmia, unspecified; K21.9 Gastro-esophageal reflux disease without esophagitis; G47.30 Sleep apnea, unspecified; E03.9 Hypothyroidism, unspecified; M19.90 Unspecified osteoarthritis, unspecified site; Z79.01 Long term (current) use of anticoagulants; Z79.4 Long term (current) use of insulin; Z85.828 Personal history of other malignant neoplasm of skin; Z88.5 Allergy status to narcotic agent; Z95.1 Presence of aortocoronary bypass graft; Z95.5 Presence of coronary angioplasty implant and graft
CPT/HCPCS: 36430; 80048; 80053; 82550; 82728; 83540; 83550; 83735; 84484; 85014; 85018; 85025; 85610; 85730; 86850; 86900; 86901; 86920; 93005; 96360; J1815; J1940; J7030; J7040; J7050; P9016; Q9963

== ENCOUNTER 2018-03-21 16:25 | Inpatient (IN) | payer MEDICARE, BC ==
[~2018-03-21] VITALS: Ht 180.3 cm; Wt 93.0 kg
[~2018-03-21 16:25] MED LIST changes: +AMIO200T PO; +ASPI-516 CHEW; +ATOR40TA16 PO; +CARV12.5 PO; +DILT240C44 PO; +FLOR250C PO; +FURO1TAB60 PO; +FURO40TA PO; +GABA100C4 PO; +ISOS30TA3 PO; +LANTUS2P SQ; +LEVO100T5 PO; +METO5TAB3 PO; +MULTTAB67 PO; +NOVOLOGP2 SQ; +OXYC15TA PO; +SPIR50TA PO; +XARE15TA PO
[2018-03-21 16:32] VITALS: BP 107/51; PULSE 76; RESP 16; TEMP 98.6; O2SAT 100
[2018-03-21 16:52] VITALS: O2SAT 100
[2018-03-21] MEDS ORDERED: SODIUM CHLORIDE 0.9% FLUSH 10 ML FLUSH IV FLUSH PRN ×2 (17:00→21:30)
[2018-03-21] MEDS ORDERED: ISOS30TA3 PO (17:16)
[2018-03-21] MEDS ORDERED: DILT240C44 PO (17:16)
[2018-03-21] MEDS ORDERED: GABA100C4 PO (17:16)
[2018-03-21] MEDS ORDERED: PACE200T PO (17:16)
[2018-03-21] MEDS ORDERED: XARE15TA PO (17:16)
[2018-03-21] MEDS ORDERED: METO5TAB3 PO (17:16)
[2018-03-21] MEDS ORDERED: OXYC15TA PO (17:16)
[2018-03-21] MEDS ORDERED: CARV12.5 PO (17:16)
[2018-03-21] MEDS ORDERED: ASPI81TA16 PO (17:16)
[2018-03-21] MEDS ORDERED: FURO1TAB60 PO (17:16)
[2018-03-21] MEDS ORDERED: MULT-65 PO (17:16)
[2018-03-21] MEDS ORDERED: LEVO100T5 PO (17:16)
[2018-03-21] MEDS ORDERED: FLOR250C PO (17:16)
[2018-03-21] MEDS ORDERED: LIPI40TA PO (17:16)
[2018-03-21] MEDS ORDERED: NOVOLOGP2 SQ (17:16)
[2018-03-21] MEDS ORDERED: LANTUS2P SQ (17:16)
[2018-03-21] MEDS ORDERED: SPIR50TA PO (17:16)
--- NOTE | 2018-03-21 17:25 | PD ---
HPI Chief Complaint: Bleeding Time Seen by Provider: 16:47 Travel History International Travel<30 days: No Contact w/Intl Traveler<30days: No Traveled to known affect area: No History of Present Illness HPI Patient is a 72-year-old male who returns the emergency room after he left AGAINST MEDICAL ADVICE on Tuesday. Patient was admitted to the hospital with a hemoglobin of 6.9 on March 16, 2018. Patient was given 2 units of blood and was seen by the vp [employer] [place]. Patient was supposed to have an EGD as well as colonoscopy yesterday, patient reports that the hospital beds were uncomfortable and left AMA on Tuesday. Patient reports that he did tell the admitting doctor that he would come back for re-admission during the weekday to have the procedures. Patient reports that he has not been feeling well all weekend, reports that he has been feeling lightheaded and overall weak. PFSH Past Medical History Arthritis: Yes Blood Disorders: No Anxiety: No Depression: No Heart Rhythm Problems: Yes Cancer: Yes (skin cancers) Cardiovascular Problems: Yes (cad,irregular heart beat) High Cholesterol: Yes Chemotherapy: No Chest Pain: No COPD: Yes Diabetes: Yes Patient Takes Glucophage: Yes (glyburide/metformin mix ) Endocrine: Yes Gastrointestinal Disorders: Yes GERD: Yes Glaucoma: No Genitourinary: No Hepatitis: No Hiatal Hernia: Yes Hypertension: Yes Immune Disorder: No Implanted Vascular Access Dvce: Yes Musculoskeletal: Yes Neurologic: Yes Psychiatric: No Reproductive: No Respiratory: Yes Migraines: Yes Radiation Therapy: No Sleep Apnea: Yes Thyroid Disease: Yes Tetanus Vaccination: Unknown Influenza Vaccination: Yes Past Surgical History Abdominal Surgery: Yes (hemmoroidectomy,hernia repair) Body Medical Devices: cardiac stents Cardiac Surgery: Yes (triple by-pass,pacemaker,5 cardiac stents) Coronary Artery Bypass Graft: Yes (TRIPLE BYPASS) Coronary Stent: Yes (X 5) Pacemaker: Yes Thoracic Surgery: Yes (CABG 2001) Other Surgery: Yes Social History Alcohol Use: No Tobacco Use: No (FORMER) Substance Use: No Allergies-Medications (Allergen,Severity, Reaction): Coded Allergies: No Known Allergies (Unverified , 03/21/18) Reported Meds & Prescriptions Reported Meds & Active Scripts Active Reported Aspirin Adult Low Strength (Aspirin) 81 Mg Tabdr 81 Mg PO DAILY Lipitor (Atorvastatin Calcium) 40 Mg Tab 40 Mg PO HS Gabapentin 100 Mg Cap 200 Mg PO TID Novolog Inj (Insulin Aspart) 1,000 Unit/10 Ml Vial 0 SQ DIRECTED Sliding Scale as directed. Lantus Inj (Insulin Glargine) 1,000 Unit/10 Ml Vial 12 Units SQ HS Isosorbide Mononitrate ER (Isosorbide Mononitrate) 30 Mg Ross 30 Mg PO DAILY Levothyroxine (Levothyroxine Sodium) 100 Mcg Tab 100 Mcg PO DAILY Multi-Vitamin Daily (Multiple Vitamin) 1 Tab Tab 1 Tab PO DAILY Xarelto (Rivaroxaban) 15 Mg Tab 15 Mg PO DAILY Florastor (Saccharomyces Boulardii) 250 Mg Cap 250 Mg PO BID Spironolactone 50 Mg Tab 50 Mg PO DAILY Oxycodone (Oxycodone HCl) 15 Mg Tab 15 Mg PO Q8H PRN Pacerone (Amiodarone HCl) 200 Mg Tab 200 Mg PO DAILY Diltiazem CD 24 HR 240 Mg Caper 240 Mg PO DAILY Coreg (Carvedilol) 12.5 Mg Tab 12.5 Mg PO Q12HR Metolazone 5 Mg Tab 10 Mg PO DAILY Lasix (Furosemide) 40 Mg Tab 40 Mg PO BID Review of Systems General / Constitutional: No: Fever Eyes: No: Visual changes HENT: No: Headaches Cardiovascular: No: Chest Pain or Discomfort Respiratory: No: Shortness of Breath Gastrointestinal: No: Abdominal Pain Genitourinary: No: Dysuria Musculoskeletal: No: Pain Skin: No Rash Neurologic: Positive: Weakness, Dizziness Psychiatric: No: Depression Endocrine: No: Polydipsia Hematologic/Lymphatic: No: Easy Bruising Physical Exam Narrative GENERAL: Mild distress SKIN: Focused skin assessment warm/dry and pale HEAD: Atraumatic. Normocephalic. EYES: Pupils equal and round. No scleral icterus. No injection or drainage. ENT: No nasal bleeding or discharge. Mucous membranes pink and moist. NECK: Trachea midline. No JVD. CARDIOVASCULAR: Regular rate and rhythm. No murmur appreciated. RESPIRATORY: No accessory muscle use. Clear to auscultation. Breath sounds equal bilaterally. GASTROINTESTINAL: Abdomen soft, non-tender, nondistended. Hepatic and splenic margins not palpable. MUSCULOSKELETAL: No obvious deformities. No clubbing. No cyanosis. No edema. NEUROLOGICAL: Awake and alert. No obvious cranial nerve deficits. Motor grossly within normal limits. Normal speech. PSYCHIATRIC: Appropriate mood and affect; insight and judgment normal. Data Data Last Documented VS Vital Signs Date Time Temp Pulse Resp B/P (MAP) Pulse Ox O2 Delivery O2 Flow Rate FiO2 03/21/18 16:52 100 Room Air 03/21/18 16:32 98.6 76 16 107/51 (69) Orders Orders Type And Screen (03/21/18 16:47) Complete Blood Count With Diff (03/21/18 16:47) Comprehensive Metabolic Panel (03/21/18 16:47) Prothrombin Time / Inr (Pt) (03/21/18 16:47) Act Partial Throm Time (Ptt) (03/21/18 16:47) Iv Access Insert/Monitor (03/21/18 16:47) Ecg Monitoring (03/21/18 16:47) Oximetry (03/21/18 16:47) Sodium Chloride 0.9% Flush (Ns Flush) (03/21/18 17:00) Labs Laboratory Tests Test 03/21/18 16:55 White Blood Count 5.8 TH/MM3 Red Blood Count 2.55 MIL/MM3 Hemoglobin 7.6 GM/DL Hematocrit 23.1 % Mean Corpuscular Volume 90.6 FL Mean Corpuscular Hemoglobin 29.8 PG Mean Corpuscular Hemoglobin Concent 32.9 % Red Cell Distribution Width 20.7 % Platelet Count 192 TH/MM3 Mean Platelet Volume 7.8 FL Neutrophils (%) (Auto) 65.5 % Lymphocytes (%) (Auto) 19.3 % Monocytes (%) (Auto) 10.9 % Eosinophils (%) (Auto) 3.0 % Basophils (%) (Auto) 1.3 % Neutrophils # (Auto) 3.8 TH/MM3 Lymphocytes # (Auto) 1.1 TH/MM3 Monocytes # (Auto) 0.6 TH/MM3 Eosinophils # (Auto) 0.2 TH/MM3 Basophils # (Auto) 0.1 TH/MM3 CBC Comment DIFF FINAL Differential Comment Prothrombin Time 18.5 SEC Prothromb Time International Ratio 1.8 RATIO Activated Partial Thromboplast Time 36.0 SEC Blood Urea Nitrogen 59 MG/DL Creatinine 1.83 MG/DL Random Glucose 152 MG/DL Total Protein 7.2 GM/DL Albumin 3.2 GM/DL Calcium Level 8.6 MG/DL Alkaline Phosphatase 101 U/L Aspartate Amino Transf (AST/SGOT) 19 U/L Alanine Aminotransferase (ALT/SGPT) 19 U/L Total Bilirubin 0.8 MG/DL Sodium Level 133 MEQ/L Potassium Level 4.1 MEQ/L Chloride Level 97 MEQ/L Carbon Dioxide Level 26.1 MEQ/L Anion Gap 10 MEQ/L Estimat Glomerular Filtration Rate 36 ML/MIN MDM Medical Decision Making Medical Screen Exam Complete: Yes Emergency Medical Condition: Yes Medical Record Reviewed: Yes Interpretation(s) Vital Signs Date Time Temp Pulse Resp B/P (MAP) Pulse Ox O2 Delivery O2 Flow Rate FiO2 03/21/18 16:52 100 Room Air 03/21/18 16:32 98.6 76 16 107/51 (56) 100 Differential Diagnosis Symptomatic anemia Narrative Course Patient is a 72-year-old male who returns to emergency room for admission to hospital for evaluation of symptomatic anemia. Patient reports that he left AGAINST MEDICAL ADVICE prior to getting his EGD as well as colonoscopy During the course of the patients emergency department visit, the patients history, examination, and differential diagnosis were reviewed with the patient. The patient was placed on a cardiac nurse specialist with oximetry and frequent blood pressure monitoring. The patient had an IV access obtained and blood work sent for analysis. The patients laboratory studies were reviewed and remarkable for Laboratory Tests Test 03/21/18 16:55 White Blood Count 5.8 TH/MM3 (4.0-11.0) Red Blood Count 2.55 MIL/MM3 (4.50-5.90) Hemoglobin 7.6 GM/DL (13.0-17.0) Hematocrit 23.1 % (39.0-51.0) Mean Corpuscular Volume 90.6 FL (80.0-100.0) Mean Corpuscular Hemoglobin 29.8 PG (27.0-34.0) Mean Corpuscular Hemoglobin Concent 32.9 % (32.0-36.0) Red Cell Distribution Width 20.7 % (11.6-17.2) Platelet Count 192 TH/MM3 (150-450) Mean Platelet Volume 7.8 FL (7.0-11.0) Neutrophils (%) (Auto) 65.5 % (16.0-70.0) Lymphocytes (%) (Auto) 19.3 % (9.0-44.0) Monocytes (%) (Auto) 10.9 % (0.0-8.0) Eosinophils (%) (Auto) 3.0 % (0.0-4.0) Basophils (%) (Auto) 1.3 % (0.0-2.0) Neutrophils # (Auto) 3.8 TH/MM3 (1.8-7.7) Lymphocytes # (Auto) 1.1 TH/MM3 (1.0-4.8) Monocytes # (Auto) 0.6 TH/MM3 (0-0.9) Eosinophils # (Auto) 0.2 TH/MM3 (0-0.4) Basophils # (Auto) 0.1 TH/MM3 (0-0.2) CBC Comment DIFF FINAL Differential Comment Prothrombin Time 18.5 SEC (9.8-11.6) Prothromb Time International Ratio 1.8 RATIO Activated Partial Thromboplast Time 36.0 SEC (24.3-30.1) Blood Urea Nitrogen 59 MG/DL (7-18) Creatinine 1.83 MG/DL (0.60-1.30) Random Glucose 152 MG/DL (74-106) Albumin 3.2 GM/DL (3.4-5.0) Calcium Level 8.6 MG/DL (8.5-10.1) Aspartate Amino Transf (AST/SGOT) 19 U/L (15-37) Alanine Aminotransferase (ALT/SGPT) 19 U/L (12-78) Sodium Level 133 MEQ/L (136-145) Potassium Level 4.1 MEQ/L (3.5-5.1) Chloride Level 97 MEQ/L (98-107) Carbon Dioxide Level 26.1 MEQ/L (21.0-32.0) Anion Gap 10 MEQ/L (5-15) Estimat Glomerular Filtration Rate 36 ML/MIN (>89) HGB 7.6 - he has been typed and screened, will obs for symptomatic anemia case reviewed with Dr. Frost who accepts pt to service Diagnosis Primary Impression: Symptomatic anemia Admitting Information Admitting Physician Requests: Observation Chiquita Ayala DO Mar 21, 2018 17:25
[2018-03-21 17:32] LABS: AUTOMATED NEUTROPHIL # 3.8 TH/MM3 (1.8-7.7); BASOPHIL # 0.1 TH/MM3 (0-0.2); BASOPHIL % 1.3 % (0.0-2.0); EOSINOPHIL # 0.2 TH/MM3 (0-0.4); HEMATOCRIT 23.1 % (39.0-51.0); HEMOGLOBIN 7.6 GM/DL (13.0-17.0); LYMPH % 19.3 % (9.0-44.0); LYMPHOCYTE # 1.1 TH/MM3 (1.0-4.8); MEAN CELL VOLUME 90.6 FL (80.0-100.0); MEAN CORPUSCULAR HEMOGLOBIN 29.8 PG (27.0-34.0); MEAN CORPUSCULAR HGB CONC 32.9 % (32.0-36.0); MEAN PLATELET VOLUME 7.8 FL (7.0-11.0); MONO % 10.9 % (0.0-8.0); MONOCYTE # 0.6 TH/MM3 (0-0.9); NEUT % 65.5 % (16.0-70.0); PLATELET COUNT 192 TH/MM3 (150-450); RED BLOOD COUNT 2.55 MIL/MM3 (4.50-5.90); RED CELL DISTRIBUTION WIDTH 20.7 % (11.6-17.2); WHITE BLOOD COUNT 5.8 TH/MM3 (4.0-11.0)
[2018-03-21 17:42] LABS: INTERNATIONAL NORMALIZED RATIO 1.8 RATIO; PROTHROMBIN TIME - PATIENT 18.5 SEC (9.8-11.6)
[2018-03-21 17:49] LABS: ALBUMIN 3.2 GM/DL (3.4-5.0); ALT (GPT) 19 U/L (12-78); AST (GOT) 19 U/L (15-37); BICARBONATE 26.1 MEQ/L (21.0-32.0); BLOOD UREA NITROGEN 59 MG/DL (7-18); CALCIUM 8.6 MG/DL (8.5-10.1); CHLORIDE 97 MEQ/L (98-107); GLUCOSE,RANDOM 152 MG/DL (74-106); SODIUM (NA) 133 MEQ/L (136-145)
[2018-03-21 17:50] LABS: CREATININE 1.83 MG/DL (0.60-1.30); GLOMERULAR FILTRATION RATE 36 ML/MIN (>89)
[2018-03-21 17:52] LABS: ALKALINE PHOSPHATASE 101 U/L (45-117); TOTAL BILIRUBIN ADULT 0.8 MG/DL (0.2-1.0); TOTAL PROTEIN 7.2 GM/DL (6.4-8.2)
[2018-03-21 18:50] VITALS: BP 137/62; PULSE 66; RESP 16; O2SAT 96
[2018-03-21 19:21] VITALS: BP 157/76; PULSE 68; RESP 16; O2SAT 95
[2018-03-21] MEDS ORDERED: GLUCAGON 1 MG/ML VIAL OTHER PRN (21:30)
[2018-03-21] MEDS ORDERED: DEXTROSE 50% IN WATER 50 ML VIAL(D50) IV PUSH PRN (21:30)
--- NOTE | 2018-03-21 21:42 | HHI.HP ---
[facility] Cyrus Hawk MD Admission Diagnosis Symptomatic anemia Diagnoses: Travel History International Travel<30 Days: No Contact w/Intl Traveler <30 Da: No Traveled to Known Affected Are: No History of Present Illness 72-year-old male with a past medical history significant for diabetes mellitus, CHF (no recent echo for comparison), COPD, atrial fibrillation anticoagulated on Xarelto, hypertension, hyperlipidemia, coronary artery disease, chronic kidney disease and anemia recently requiring transfusion presents to the emergency department for the evaluation of continued weakness. The patient was admitted on 03/16/18 where he was transfused 2 units packed red blood cells and was scheduled to have a good pain. The patient however, remain. He is returned for further evaluation. He continues to endorse weakness, dizziness and shortness of breath that is worse with activity. He denies any dark, tarry stools or melena. No chest pain. No abdominal pain. No nausea/vomiting/ diarrhea. No lateralizing signs/symptoms. No fever/chills. Review of Systems Except as stated in HPI: all other systems reviewed are Neg Past Family Social History Past Medical History diabetes mellitus, CHF (no recent echo for comparison), COPD, atrial fibrillation anticoagulated on Xarelto, hypertension, hyperlipidemia, coronary artery disease, chronic kidney disease and anemia Past Surgical History CABG 3 Cardiac catheterization with stent placement AICD Reported Medications Reported Meds & Active Scripts Active Reported Aspirin Adult Low Strength (Aspirin) 81 Mg Tabdr 81 Mg PO DAILY Lipitor (Atorvastatin Calcium) 40 Mg Tab 40 Mg PO HS Gabapentin 100 Mg Cap 200 Mg PO TID Novolog Inj (Insulin Aspart) 1,000 Unit/10 Ml Vial 0 SQ DIRECTED Sliding Scale as directed. Lantus Inj (Insulin Glargine) 1,000 Unit/10 Ml Vial 12 Units SQ HS Isosorbide Mononitrate ER (Isosorbide Mononitrate) 30 Mg Ross 30 Mg PO DAILY Levothyroxine (Levothyroxine Sodium) 100 Mcg Tab 100 Mcg PO DAILY Multi-Vitamin Daily (Multiple Vitamin) 1 Tab Tab 1 Tab PO DAILY Xarelto (Rivaroxaban) 15 Mg Tab 15 Mg PO DAILY Florastor (Saccharomyces Boulardii) 250 Mg Cap 250 Mg PO BID Spironolactone 50 Mg Tab 50 Mg PO DAILY Oxycodone (Oxycodone HCl) 15 Mg Tab 15 Mg PO Q8H PRN Pacerone (Amiodarone HCl) 200 Mg Tab 200 Mg PO DAILY Diltiazem CD 24 HR 240 Mg Caper 240 Mg PO DAILY Coreg (Carvedilol) 12.5 Mg Tab 12.5 Mg PO Q12HR Metolazone 5 Mg Tab 10 Mg PO DAILY Lasix (Furosemide) 40 Mg Tab 40 Mg PO BID Allergies: Coded Allergies: No Known Allergies (Unverified , 03/21/18) Family History Negative for CAD/DM Social History Negative for alcohol, tobacco and illicit drugs. Physical Exam Vital Signs Vital Signs Date Time Temp Pulse Resp B/P (MAP) Pulse Ox O2 Delivery O2 Flow Rate FiO2 03/21/18 19:23 72 14 97 Room Air 03/21/18 19:21 68 16 157/76 (103) 95 Room Air 03/21/18 18:50 66 16 137/62 (87) 96 Room Air 03/21/18 16:52 100 Room Air 03/21/18 16:32 98.6 76 16 107/51 (69) 100 Physical Exam GENERAL: male sitting up in bed SKIN: No rashes, ecchymoses or lesions. Cool and dry. HEAD: Atraumatic. Normocephalic. No temporal or scalp tenderness. EYES: Pupils equal round and reactive. Extraocular motions intact. No scleral icterus. No injection or drainage. ENT: Nose without bleeding, purulent drainage or septal hematoma. Throat without erythema, tonsillar hypertrophy or exudate. Uvula midline. Airway patent. NECK: Trachea midline. No JVD or lymphadenopathy. Supple, nontender, no meningeal signs. CARDIOVASCULAR: Regular rate and irregularly irregular rhythm without murmurs, gallops, or rubs. RESPIRATORY: Clear to auscultation. Breath sounds equal bilaterally. No wheezes , rales, or rhonchi. GASTROINTESTINAL: Abdomen soft, non-tender, nondistended. No hepato-splenomegaly , or palpable masses. No guarding. MUSCULOSKELETAL: Extremities without clubbing, cyanosis, or edema. No joint tenderness, effusion, or edema noted. No calf tenderness. NEUROLOGICAL: Awake and alert. Cranial nerves II through XII intact. Motor and sensory grossly within normal limits. Normal speech. Laboratory Laboratory Tests Test 03/21/18 16:55 White Blood Count 5.8 Red Blood Count 2.55 Hemoglobin 7.6 Hematocrit 23.1 Mean Corpuscular Volume 90.6 Mean Corpuscular Hemoglobin 29.8 Mean Corpuscular Hemoglobin Concent 32.9 Red Cell Distribution Width 20.7 Platelet Count 192 Mean Platelet Volume 7.8 Neutrophils (%) (Auto) 65.5 Lymphocytes (%) (Auto) 19.3 Monocytes (%) (Auto) 10.9 Eosinophils (%) (Auto) 3.0 Basophils (%) (Auto) 1.3 Neutrophils # (Auto) 3.8 Lymphocytes # (Auto) 1.1 Monocytes # (Auto) 0.6 Eosinophils # (Auto) 0.2 Basophils # (Auto) 0.1 CBC Comment DIFF FINAL Differential Comment Prothrombin Time 18.5 Prothromb Time International Ratio 1.8 Activated Partial Thromboplast Time 36.0 Blood Urea Nitrogen 59 Creatinine 1.83 Random Glucose 152 Total Protein 7.2 Albumin 3.2 Calcium Level 8.6 Alkaline Phosphatase 101 Aspartate Amino Transf (AST/SGOT) 19 Alanine Aminotransferase (ALT/SGPT) 19 Total Bilirubin 0.8 Sodium Level 133 Potassium Level 4.1 Chloride Level 97 Carbon Dioxide Level 26.1 Anion Gap 10 Estimat Glomerular Filtration Rate 36 Result Diagram: 03/21/185 03/21/181654 Caprini VTE Risk Assessment Caprini VTE Risk Assessment: Mod/High Risk (score >= 2) Caprini Risk Assessment Model Point Value = 1 Point Value = 2 Point Value = 3 Point Value = 5 Age 41-60 Minor surgery BMI > 25 kg/m2 Swollen legs Varicose veins or History of unexplained or recurrent spontaneous Oral contraceptives or hormone replacement Sepsis (< 1 month) Serious lung disease, including pneumonia (< 1 month) Abnormal pulmonary function Acute myocardial infarction Congestive heart failure (< 1 month) History of inflammatory bowel disease Medical patient at bed rest Age 61-74 Arthroscopic surgery Major open surgery (> 45 min) Laparoscopic surgery (> 45 min) Malignancy Confined to bed (> 72 hours) Immobilizing plaster cast Central venous access Age >= 75 History of VTE Family history of VTE Factor V Leiden Prothrombin [id number] Lupus anticoagulant Anticardiolipin antibodies Elevated serum homocysteine Heparin-induced thrombocytopenia Other congenital or acquired thrombophilia Stroke (< 1 month) Elective arthroplasty Hip, pelvis, or leg fracture Acute spinal cord injury (< 1 month) Prophylaxis Regimen Total Risk Factor Score Risk Level Prophylaxis Regimen 0-1 Low Early ambulation 2 Moderate Order ONE of the following: *Sequential Compression Device (SCD) *Heparin 5000 units SQ BID 3-4 Higher Order ONE of the following medications: *Heparin 5000 units SQ TID *Enoxaparin/Lovenox 40 mg SQ daily (WT < 150 kg, CrCl > 30 mL/min) *Enoxaparin/Lovenox 30 mg SQ daily (WT < 150 kg, CrCl > 10-29 mL/min) *Enoxaparin/Lovenox 30 mg SQ BID (WT < 150 kg, CrCl > 30 mL/min) AND/OR *Sequential Compression Device (SCD) 5 or more Highest Order ONE of the following medications: *Heparin 5000 units SQ TID (Preferred with Epidurals) *Enoxaparin/Lovenox 40 mg SQ daily (WT < 150 kg, CrCl > 30 mL/min) *Enoxaparin/Lovenox 30 mg SQ daily (WT < 150 kg, CrCl > 10-29 mL/min) *Enoxaparin/Lovenox 30 mg SQ BID (WT < 150 kg, CrCl > 30 mL/min) AND *Sequential Compression Device (SCD) Assessment and Plan Assessment and Plan Assessment/plan: 1. Symptomatic anemia Concern for possible GI bleed Gastroenterology consulted, appreciate recommendations Serial H&H IV Protonix Transfuse as needed Holding home Xarelto and aspirin Hemoccult pending 2. Diabetes mellitus Holding home Lantus as patient reports he does not take this and he is n.p.o. Sliding-scale insulin Monitor blood glucose 3. Atrial fibrillation/CAD/CHF/hypertension/hyperlipidemia Holding home Xarelto Continue home medications 4. Chronic kidney disease Creatinine 1.83, baseline for the patient Monitor renal function Gentle IV fluid hydration given history of CHF 5. COPD Duo nebs as needed FEN N.p.o. NS at 70 cc/hour Electrolytes: Monitor and replete as needed Holding pharmacologic anticoagulation for symptomatic anemia and concern for GI bleed Chiquita Garcia MD Mar 21, 2018 21:42
[2018-03-21] MEDS ORDERED: ONDANSETRON ODT 4 MG TAB PO PRN (21:45)
[2018-03-21] MEDS ORDERED: RESP: ALBUTEROL 2.5 MG/IPRATROPIUM 0.5 MG NEB (PRN) NEB (21:45)
[2018-03-21 22:28] VITALS: BP 152/69; PULSE 78; RESP 16; TEMP 97.8; O2SAT 100
[2018-03-21 23:20] LABS: HEMATOCRIT 23.3 % (39.0-51.0); HEMOGLOBIN 7.7 GM/DL (13.0-17.0)
[2018-03-21] MEDS: SODIUM CHLOR 0.9% 1000 ML INJ 1,000 ML IV SCH (23:37)
[2018-03-22] VITALS (13 sets, daily range): BP systolic 76–147; BP diastolic 38–67; PULSE 38–82; RESP 16–28; TEMP 98.2–98.6; O2SAT 97–100
[2018-03-22 04:19] LABS: HEMATOCRIT 23.1 % (39.0-51.0); HEMOGLOBIN 7.6 GM/DL (13.0-17.0)
[2018-03-22] MEDS: LEVOTHYROXINE SODIUM 100 MCG TAB PO SCH (05:43)
[2018-03-22] MEDS: INSULIN ASPART SUPPLEMENTAL SCALE SQ SCH ×4 (08:01→21:00)
[2018-03-22] MEDS: SODIUM CHLORIDE 0.9% FLUSH 10 ML FLUSH IV FLUSH SCH ×2 (08:04→21:38)
[2018-03-22] MEDS: CARVEDILOL 12.5 MG TAB PO SCH (08:04)
[2018-03-22] MEDS: SPIRONOLACTONE 50 MG TAB PO SCH (08:04)
[2018-03-22] MEDS: GABAPENTIN 100 MG CAP PO SCH ×3 (08:04→18:28)
[2018-03-22] MEDS: ISOSORBIDE MONONITRATE 30 MG CR TAB (IMDUR) PO SCH (08:04)
[2018-03-22] MEDS: PANTOPRAZOLE SODIUM 40 MG VIAL IV PUSH SCH (08:05)
[2018-03-22] MEDS: FUROSEMIDE 40 MG TAB PO SCH ×2 (08:05→21:37)
[2018-03-22] MEDS ORDERED: DILTIAZEM-CD 240 MG CAP ER PO SCH (09:00)
[2018-03-22] MEDS ORDERED: AMIODARONE 200 MG TAB PO SCH (09:00)
--- NOTE | 2018-03-22 09:23 | PD.CONS ---
HPI History of Present Illness This is a 72 year old with PMH significant for CAD S/P CABG x 3, hyperlipidemia , HTN, a-fib on Xarelto, DM, hypothyroid, CHF, and currently being treated by home health for toe cellulitis. Pt was recently seen by our service last Tuesday after he presented to the ER with complaints of fatigue and he was found to be anemic. We recommended an EGD and colonoscopy to be done on Tuesday, however patient did not want to stay over the weekend and left AMA. Pt was previously on Xarelto and reports he bleeds very easily and has had multiple episodes of significant bleeding after bumping into something or being scratched, has not had any Xarelto since he left last Tuesday. Pt also had a previous long admission in the beginning of February for CHF exacerbation hgb was 6.2 on February 18 and pt had 2 U of PRBCs transfused. Denies any other previous history of anemia. Pt presented back to the ER yesterday with complaints of continued weakness. Denies history of GIB. Denies any GI symptoms at this time including nausea, vomiting, acid reflux, heartburn, abdominal pain, constipation, diarrhea , obvious GIB. Pt does report that he has intermittent mid abdominal pain. Does report recent weight loss but states secondary to diuresis. Has never had EGD. Last colonoscopy 4 years ago in [place] and he states normal exam. Denies ETOH and smoking. (Tammy Borrero) PFSH Past Medical History CAD S/P CABG x 3 Hyperlipidemia HTN Atrial fibrillation on Xarelto- no Xarelto since last Tuesday DM Hypothyroid CHF Toe cellulitis CKD Past Surgical History CABG 3 Cardiac catheterization with stent placement AICD (Tammy Borrero) Coded Allergies: codeine (Verified Allergy, Unknown, 03/22/18) hydromorphone (Verified Allergy, Unknown, Hallucinations, 03/22/18) morphine (Verified Allergy, Unknown, Hallucinations, 03/22/18) fentanyl (Verified Adverse Reaction, Intermediate, Confusion, combative, hallucination, 03/22/18) zolpidem (Verified Adverse Reaction, Intermediate, Confusion lasting 24 hours, 03/22/18) Family History Negative for CAD/DM Social History Negative for alcohol, tobacco and illicit drugs. (Tammy Borrero) Review of Systems Gastrointestinal: COMPLAINS OF: Abdominal pain, DENIES: Black stools, Bloody stools, Constipation, Diarrhea, Nausea, Vomiting, Difficulty Swallowing, Odynophagia, Swelling of Abdomen, Heartburn, Hematemesis (Tammy Borrero) GI Exam Vitals I&O Vital Signs Date Time Temp Pulse Resp B/P (MAP) Pulse Ox O2 Delivery O2 Flow Rate FiO2 03/22/18 07:22 98.3 82 18 147/63 (91) 99 03/22/18 02:57 98.2 71 16 137/62 (87) 100 03/21/18 22:28 97.8 78 16 152/69 (96) 100 03/21/18 22:15 03/21/18 19:23 72 14 97 Room Air 03/21/18 19:21 68 16 157/76 (103) 95 Room Air 03/21/18 18:50 66 16 137/62 (87) 96 Room Air 03/21/18 16:52 100 Room Air 03/21/18 16:32 98.6 76 16 107/51 (69) 100 Laboratory Test 03/21/18 16:55 03/21/18 22:59 03/22/18 03:57 White Blood Count 5.8 TH/MM3 Red Blood Count 2.55 MIL/MM3 Hemoglobin 7.6 GM/DL 7.7 GM/DL 7.6 GM/DL Hematocrit 23.1 % 23.3 % 23.1 % Mean Corpuscular Volume 90.6 FL Mean Corpuscular Hemoglobin 29.8 PG Mean Corpuscular Hemoglobin Concent 32.9 % Red Cell Distribution Width 20.7 % Platelet Count 192 TH/MM3 Mean Platelet Volume 7.8 FL Neutrophils (%) (Auto) 65.5 % Lymphocytes (%) (Auto) 19.3 % Monocytes (%) (Auto) 10.9 % Eosinophils (%) (Auto) 3.0 % Basophils (%) (Auto) 1.3 % Neutrophils # (Auto) 3.8 TH/MM3 Lymphocytes # (Auto) 1.1 TH/MM3 Monocytes # (Auto) 0.6 TH/MM3 Eosinophils # (Auto) 0.2 TH/MM3 Basophils # (Auto) 0.1 TH/MM3 CBC Comment DIFF FINAL Differential Comment Prothrombin Time 18.5 SEC Prothromb Time International Ratio 1.8 RATIO Activated Partial Thromboplast Time 36.0 SEC Blood Urea Nitrogen 59 MG/DL Creatinine 1.83 MG/DL Random Glucose 152 MG/DL Total Protein 7.2 GM/DL Albumin 3.2 GM/DL Calcium Level 8.6 MG/DL Alkaline Phosphatase 101 U/L Aspartate Amino Transf (AST/SGOT) 19 U/L Alanine Aminotransferase (ALT/SGPT) 19 U/L Total Bilirubin 0.8 MG/DL Sodium Level 133 MEQ/L Potassium Level 4.1 MEQ/L Chloride Level 97 MEQ/L Carbon Dioxide Level 26.1 MEQ/L Anion Gap 10 MEQ/L Estimat Glomerular Filtration Rate 36 ML/MIN Physical Examination HEENT: Normocephalic; atraumatic CHEST: Even/unlabored ABDOMEN: Round, soft, nontender, bowel sounds active EXTREMITIES: BLE edema SKIN: Normal; no rash; no jaundice. JEWELRY CUTTER: Alert and oriented times three. (Tammy Borrero) Assessment and Plan Plan Assessment - Anemia- normocytic, with no obvious GIB Pt seen by our service on Tuesday and recommended to have EGD and colonoscopy on Tuesday, pt did not want to stay over the weekend and left AMA. He is now back with complaints of fatigue and still anemic. Pt had recent admission in the beginning of this month for CHF exacerbation, hgb was 6.9 and he had 2 U PRBCs- Pt does report bleeding easy from being on Xarelto and multiple episodes where he has bumped into something or been scratched and had profuse bleeding- denies any other previous history of anemia. Denies any GI symptoms at this time- does report intermittent mid abdominal pain Has never had EGD Last colonoscopy 4 years ago and states normal exam - CAD S/P CABG x 3, hyperlipidemia, HTN, a-fib on Xarelto, DM, hypothyroid, CHF, and toe cellulitis per attending Xarelto has been on hold since last Tuesday Plan: EGD and colonoscopy tomorrow Obtain consent Clear liquids today Golytely prep NPO after MN Monitor H/H Transfuse as indicated Hold Xarelto Further recommendations based on findings of above and clinical course Pt has been seen and examined by myself and Dr. Ryan and this note is written on his behalf (Tammy Borrero) Physician Comments Seen with Tammy, agree with the plan as above. Consent obtained for EGD and Colonoscopy tomorrow. Further recommendations to follow. Thank you for the consult (Myra Ryan MD) Tammy Borrero Mar 22, 2018 09:23 Myra Ryan MD Mar 22, 2018 14:03
--- NOTE | 2018-03-22 10:22 | HHI.PR ---
Subjective Remarks Follow up anemia, diabetes. No reported bleeding. Patient states that he feels "OK" this morning. No chest pain or dyspnea. No nausea or vomiting. Objective Vitals Vital Signs Date Time Temp Pulse Resp B/P (MAP) Pulse Ox O2 Delivery O2 Flow Rate FiO2 03/22/18 07:22 98.3 82 18 147/63 (91) 99 03/22/18 02:57 98.2 71 16 137/62 (87) 100 03/21/18 22:28 97.8 78 16 152/69 (96) 100 03/21/18 22:15 03/21/18 19:23 72 14 97 Room Air 03/21/18 19:21 68 16 157/76 (103) 95 Room Air 03/21/18 18:50 66 16 137/62 (87) 96 Room Air 03/21/18 16:52 100 Room Air 03/21/18 16:32 98.6 76 16 107/51 (69) 100 Result Diagram: 03/22/18 0357 03/21/18 8776 Objective Remarks General: Elderly male in no acute distress. Heart: Regular rate and rhythm. No murmur. Lungs: Clear to auscultation bilaterally. No wheezes, rales, or rhonchi. Breathing is nonlabored. Abdomen: Soft, nontender, nondistended. Extremities: No lower extremity edema. Psych: Alert and oriented. Neuro: Normal speech. No focal deficits noted. Procedures None Urinary Catheter: No Vascular Central Line Catheter: No A/P Assessment and Plan 1. Symptomatic anemia: Possible GI bleed. Appreciate gastroenterology recommendations. No reported bleeding overnight. Monitor H/H. Continue IV protonix. 2. Diabetes mellitus: Monitor Accu-Cheks and cover with sliding scale insulin. 3. Atrial fibrillation: Xarelto on hold secondary to anemia, possible GI bleed. 4. Coronary artery disease: Currently asymptomatic. Patient's family is requesting a consult be placed to his home visits nurse, Dr. Xiao, prior to GI procedure. 5. Hypertension: Continue Coreg, Cardizem, Lasix, Aldactone. 6. Hyperlipidemia: Continue statin. 7. COPD: DuoNeb as needed. 8. DVT prophylaxis: SCDs, SG hose. Avoid chemical prophylaxis secondary to GI bleed, anemia. 9. Acute kidney injury superimposed on chronic kidney disease stage III: Caution with IV fluids due to history of CHF. Monitor BUN and creatinine. 10. Hypothyroidism: Continue Synthroid. 11. Reported history of CHF: Uncertain if systolic or diastolic. No echocardiogram report available at this time. Continue diuretics. Discharge Planning Pending further GI workup. Tejas Suh MD Mar 22, 2018 10:22
[2018-03-22] MEDS: METOLAZONE 5 MG TAB PO SCH (10:38)
[2018-03-22 12:32] LABS: HEMATOCRIT 22.7 % (39.0-51.0); HEMOGLOBIN 7.5 GM/DL (13.0-17.0)
[2018-03-22] MEDS: SODIUM CHLOR 0.9% 1000 ML INJ 1,000 ML IV SCH (13:03)
[2018-03-22] MEDS ORDERED: ACETAMINOPHEN/HYDROcodone 325 MG/5 MG TAB PO PRN (13:15)
--- NOTE | 2018-03-22 14:24 | MB ---
cc: Scottie Xiao MD DATE: 03/22/2018 DATE OF : 1945 REASON FOR CONSULTATION: History of coronary artery disease, congestive heart failure. HISTORY OF PRESENT ILLNESS: The patient is a 72-year-old white male with a history of multiple medical problems including coronary artery disease, atrial fibrillation, congestive heart failure, severe ischemic cardiomyopathy with ejection fraction at 20%, diabetes, COPD, who presented to the emergency department last Tuesday for severe symptomatic anemia. He signed out against medical advice as he was to wait over the weekend to have panendoscopy performed. He returns now with similar symptoms including generalized weakness, fatigue, dyspnea at rest and worsened with exertion. Infrequently he experiences substernal chest discomfort which never lasts more than 20 seconds. He denies dizziness, syncope, near syncope, palpitations, change in chronic pedal edema, paroxysmal nocturnal dyspnea. The patient has had numerous admissions for congestive heart failure in the last year. We have tried to keep him out of the hospital using p.r.n. intravenous Lasix administered by home health care nursing. PAST MEDICAL HISTORY: 1. Carotid disease, status post right carotid endarterectomy 03/2012. His last carotid ultrasound was 09/20/2017 showing 30-49% bilateral internal carotid artery disease. 2. Chronic obstructive pulmonary disease. 3. Coronary artery disease status post bypass surgery in 2001, status post stent of the [place] LAD through his left internal mammary artery, 2003. On a heart catheterization 02/03/2015, his vein graft to the posterior descending artery was found to be occluded. His last heart catheterization was 10/12/2017 at [facility] showing 50% mid to distal left main, total occluded proximal LAD, totally occluded proximal right coronary, totally occluded obtuse marginal, patent left internal mammary artery to the LAD with patent [place] LAD stent, patent vein graft to the obtuse marginal, totally occluded vein graft to the posterior descending artery with good left to right collaterals. 4. Diabetes. 5. Hyperlipidemia. 6. Hypertension. 7. Hypothyroidism. 8. Ischemic cardiomyopathy with ejection fraction of 20% by echo about a month ago. As noted above, he has had numerous admissions for congestive heart failure in the last year. 9. History of a pacemaker implant with upgrade to an AICD device about a month ago. 10. Paroxysmal atrial fibrillation, dating back to 2010. His atrial fibrillation has been mostly chronic since July 2017. 11. History of peripheral vascular disease, status post angioplasty of the right posterior tibial 01/18/2013 and angioplasty of the left anterior tibial 02/08/2013, status post stent of the right superficial femoral artery 01/18/2013 and stent of the left superficial femoral artery 02/08/2013. CARDIAC MEDICATIONS AT HOME: 1. Aspirin 81 mg daily. 2. Lipitor 40 mg at bedtime. 3. Isosorbide mononitrate 30 mg daily. 4. Xarelto 15 mg daily. 5. Spironolactone 50 mg daily. 6. Amiodarone 200 mg daily. 7. Cardizem-CD. 8. Atorvastatin 40 mg at bedtime. 9. Carvedilol 12.5 mg b.i.d. 10. Furosemide 40 mg b.i.d. 11. Isosorbide mononitrate 30 mg daily. 12. Metolazone 10 mg daily. 13. Spironolactone 50 mg daily. 14. Xarelto 15 mg daily. ALLERGIES: NO KNOWN DRUG ALLERGIES. FAMILY HISTORY: Noncontributory. SOCIAL HISTORY: The patient is a former smoker. There is no history of alcohol abuse. REVIEW OF SYSTEMS: As in the History Of Present Illness, otherwise negative or noncontributory. He also denies abdominal pain, dyspepsia, gastroesophageal reflux and bright red blood per rectum. He has noted dark black stools, although he has been on iron chronically. In addition, he has had mild headaches occasionally. PHYSICAL EXAMINATION: VITAL SIGNS: Blood pressure 101/54 with a pulse of 50, respirations 18. GENERAL: He is a well-developed, well-nourished white male, in no acute distress. NECK: Jugular venous pressure is normal. Carotid pulses are 2+ bilaterally and without bruits. CHEST: Reveals diminished breath sounds at the right base. CARDIAC: He has an irregularly irregular rhythm without S3 or murmur. ABDOMEN: He has a soft, nontender abdomen. Bowel sounds are present. There is no definite hepatosplenomegaly. EXTREMITIES: Reveals 1+ pretibial edema bilaterally. LABORATORY DATA: Includes: Hemoglobin 7.5, WBC 5.8, platelets 192. Potassium 4.1, BUN 59, creatinine 1.83. INR 1.8. IMPRESSION: Symptomatic severe anemia in 72-year-old white male with a history of multiple medical problems including severe ischemic cardiomyopathy, ejection fraction 20%, history of numerous admissions for congestive heart failure, coronary artery disease, chronic obstructive pulmonary disease, atrial fibrillation which has been largely chronic in the last seven months, diabetes. The patient has had persistent pedal edema, which has been difficult to completely clear. A chest x-ray about 3 days ago showed overall improvement with a residual small to moderate sized right pleural effusion and clear left lung king. He has had no definite recent angina. Of note, his Cardizem-CD and amiodarone were stopped recently. In light of his renal insufficiency, he has been kept off angiotensin converting enzyme inhibitor or angiotensin receptor cathy therapy at this time. RECOMMENDATIONS: 1. Would try to resume aspirin and Xarelto as soon as possible. With his atrial fibrillation, his thromboembolic risk is very high. 2. Await results of his endoscopies. 3. As noted above, his heart as noted above, his Cardizem-CD and amiodarone had been stopped recently. 4. Continue his diuretic regimen including furosemide 40 mg p.o. b.i.d., spironolactone 50 mg p.o. daily and metolazone 10 mg p.o. at bedtime. Follow BMP closely. MD PANCHO Chapman/RONALD , 01:47 PM , 02:23 PM MTDJay Jay
[2018-03-22] MEDS ORDERED: CALCIUM CHLORIDE INJ 1 GM in SODIUM CHLORIDE 0.9% INJ 100 ML IV ONE (15:30)
[2018-03-22] MEDS ORDERED: CALCIUM CHLORIDE 10% SOLN 1 GRAM/10 ML SYR ONE (15:31)
[2018-03-22] MEDS ORDERED: PEG (High)/E-LYTE SOLN 4000 ML BTL PO ONE (16:00)
--- NOTE | 2018-03-22 16:11 | PD.CONS ---
[facility] Service Critical Care Medicine Consult Requested By Dr. Suh Reason for Consult Hypotension, bradycardia Primary Care Physician History of Present Illness 72-year-old male with a past medical history significant for diabetes mellitus, chronic systolic heart failure (EF 20% on Echo 02/21/18), ICD placed for low EF, COPD, chronic atrial fibrillation anticoagulated on Xarelto, hypertension, hyperlipidemia, coronary artery disease s/p 3vCABG, chronic kidney disease stage III and anemia presents to the emergency department 03/16 for the evaluation of generalized weakness. He was anemic and was admitted and transfused 2 units packed red blood cells and EGD/Colonoscopy was recommended however patient did not want to stay in the hospital while xarelto was being held so he left AMA. He states he has continued to have melena stools about once every other day since discharge. He returned to the ED 03/21 when Hgb was 7.6 and was placed in observation with plan for EGD/colonoscopy tomorrow morning. Today Dayan[facility] was called when he became pale, lethargic, bradycardic and hypotensive. His heart rate was in the 40s. It was brought to the attention of providers that patient had received amiodarone 200 mg and cardizem 240 mg po, however these had been discontinued by Dr. Xiao and were no longer active medications. Dr. Chung was near the patients room when [facility] was called and brought [employer] equipment to [facility] where he reprogrammed Biotronik pacer to VVI with backup rate 70 when I was at bedside . With heart rate in 70s patient became normotensive and said he felt much better. Denies CP/SOB/ abdominal pain. Contacted Dr. Xiao office to obtain accurate med list as patient and his family were having difficulty providing it. He states he has been taking ibuprofen 800-1200 mg a day for over a year due to chronic pain. Denies nausea vomiting or abdominal pain. Review of Systems Constitutional: DENIES: Fever Respiratory: DENIES: Cough, Hemoptysis, Sputum production, Shortness of breath Cardiovascular: DENIES: Chest pain, Palpitations Gastrointestinal: COMPLAINS OF: Black stools Hematologic/lymphatic: COMPLAINS OF: Bruising Neurologic: DENIES: Headache Past Family Social History Allergies: Coded Allergies: codeine (Verified Allergy, Unknown, 03/22/18) hydromorphone (Verified Allergy, Unknown, Hallucinations, 03/22/18) morphine (Verified Allergy, Unknown, Hallucinations, 03/22/18) fentanyl (Verified Adverse Reaction, Intermediate, Confusion, combative, hallucination, 03/22/18) zolpidem (Verified Adverse Reaction, Intermediate, Confusion lasting 24 hours, 03/22/18) Past Medical History CAD S/P CABG x 3 Hyperlipidemia HTN Atrial fibrillation on Xarelto- no Xarelto since last Tuesday DM Hypothyroid Chronic systolic heart failure Toe cellulitis CKD stage III Past Surgical History Right inguinal hernia repair 50 years ago ICD placed 02/03/18 Dr. Xiao Multiple skin cancers removed Coronary stents CABG Reported Medications Xarelto 50 mg p.o. daily (last dose was 03/16/18) Lipitor 40 mg p.o. nightly Isosorbide mononitrate 30 mill grams p.o. daily Coreg 12.5 mill grams p.o. every 12 hours Spiriva lactone 50 mg p.o. daily Oxycodone 15 mg p.o. every 8 hours as needed for pain Gabapentin 200 mg p.o. 3 times daily Lasix 40 mg p.o. twice daily Metolazone 10 mg p.o. daily Florastor 250 mg p.o. twice daily Insulin sliding scale Lantus Levothyroxine 100 mcg p.o. daily Family History Patient states he is not aware of his family medical history. He states his mother at age 75 and his father at age 87 from natural causes. Social History He states he smoked 4 packs of cigarettes per day for 50 years quit in 2001 No alcohol or illicit drug use for 49 years and has 3 adult sons (Shaka, Kyler and Alvarez) Physical Exam Vital Signs Vital Signs Date Time Temp Pulse Resp B/P (MAP) Pulse Ox O2 Delivery O2 Flow Rate FiO2 03/22/18 15:30 38 76/38 (51) 03/22/18 15:14 98.3 40 84/40 (55) 100 03/22/18 12:02 98.6 50 18 101/54 (70) 100 03/22/18 07:22 98.3 82 18 147/63 (91) 99 03/22/18 02:57 98.2 71 16 137/62 (87) 100 03/21/18 22:28 97.8 78 16 152/69 (96) 100 03/21/18 22:15 03/21/18 19:23 72 14 97 Room Air 03/21/18 19:21 68 16 157/76 (103) 95 Room Air 03/21/18 18:50 66 16 137/62 (87) 96 Room Air 03/21/18 16:52 100 Room Air 03/21/18 16:32 98.6 76 16 107/51 (69) 100 Physical Exam GENERAL: Overweight well-developed male who upon arrival to [facility] was pale-appearing, lethargic with heart rate in the 40s. SKIN: Cool, dry. HEAD: Atraumatic. Normocephalic. EYES: Pupils equal and round, 2 mm and reactive.. No scleral icterus. No injection or drainage. ENT: No nasal bleeding or discharge. Mucous membranes pink and moist. NECK: Trachea midline. No JVD. CARDIOVASCULAR: Regular, paced at 40 upon arrival. No murmurs rubs or gallops. RESPIRATORY: No accessory muscle use. Clear to auscultation. Breath sounds equal bilaterally. GASTROINTESTINAL: Abdomen soft, non-tender, nondistended. Bowel sounds present. MUSCULOSKELETAL: Extremities without clubbing, cyanosis. 2+ edema with weeping of bilateral lower extremities. NEUROLOGICAL: Awake and alert after he began being paced in the 70s. Oriented 3. Normal speech. Moving all extremities with no focal deficit. Laboratory Laboratory Tests Test 03/21/18 16:55 03/21/18 22:59 03/22/18 03:57 03/22/18 11:05 White Blood Count 5.8 Red Blood Count 2.55 Hemoglobin 7.6 7.7 7.6 7.5 Hematocrit 23.1 23.3 23.1 22.7 Mean Corpuscular Volume 90.6 Mean Corpuscular Hemoglobin 29.8 Mean Corpuscular Hemoglobin Concent 32.9 Red Cell Distribution Width 20.7 Platelet Count 192 Mean Platelet Volume 7.8 Neutrophils (%) (Auto) 65.5 Lymphocytes (%) (Auto) 19.3 Monocytes (%) (Auto) 10.9 Eosinophils (%) (Auto) 3.0 Basophils (%) (Auto) 1.3 Neutrophils # (Auto) 3.8 Lymphocytes # (Auto) 1.1 Monocytes # (Auto) 0.6 Eosinophils # (Auto) 0.2 Basophils # (Auto) 0.1 CBC Comment DIFF FINAL Differential Comment Prothrombin Time 18.5 Prothromb Time International Ratio 1.8 Activated Partial Thromboplast Time 36.0 Blood Urea Nitrogen 59 Creatinine 1.83 Random Glucose 152 Total Protein 7.2 Albumin 3.2 Calcium Level 8.6 Alkaline Phosphatase 101 Aspartate Amino Transf (AST/SGOT) 19 Alanine Aminotransferase (ALT/SGPT) 19 Total Bilirubin 0.8 Sodium Level 133 Potassium Level 4.1 Chloride Level 97 Carbon Dioxide Level 26.1 Anion Gap 10 Estimat Glomerular Filtration Rate 36 Result Diagram: 03/22/18 1105 03/21/18 1655 Assessment and Plan Assessment and Plan NEURO: Chronic pain Continue oxycodone 50 mg every 8 hours as needed for pain. Peripheral neuropathy Continue gabapentin 200 mg p.o. 3 times daily RESP: COPD Prior history of tobacco abuse Nasal cannula wean as tolerated CV: Symptomatic bradycardia with shock secondary to medication administration Chronic atrial fibrillation Chronic systolic heart failure with ejection fraction 20% ICD in place Coronary artery disease with prior CABG Hypertension Hyperlipidemia Discontinue amiodarone and Cardizem which were previously discontinued as an outpatient by Dr. Xiao. Biotronik pacer set to backup rate of 70 now and now patient is normotensive and asymptomatic. Backup rate was previously set at 40 and backup rate will likely be readjusted by cardiology when he is stabilized and medications have worn off. However backup rate of 40 was inadequate in setting of GI bleed. Continue Lipitor 40 mg p.o. nightly Continue spironolactone 50 mg p.o. daily, metolazone 10 mg p.o. daily, Lasix 40 mg p.o. twice daily Coreg 12.5 mg p.o. twice daily is supposed to be an active medication but will hold for now Continue isosorbide mononitrate 30 mill grams p.o. daily Chronically anticoagulated with Xarelto for A. fib but this is on hold due to GI bleeding. GI: Melena Obesity Monitor CBC. Will hold off on bowel prep at this time until stabilized. GI following and plan for EGD colonoscopy 03/24/18 Per GI okay to resume regular diet for now and will change to clear liquid diet on and do a bowel prep that evening. FEN/RENAL: Chronic kidney disease stage III Voiding Monitor BMP ID: Monitor for signs and symptoms of infection HEME: Acute blood loss overlying chronic iron deficiency anemia Type and screen has been sent. Monitor CBC. Transfuse as indicated for hemoglobin less than 8 ENDO: Diabetes mellitus change to Medium dose sliding scale insulin ac/hs Hypothyroidism Continue Synthroid 100 mcg p.o. daily PROPH: SCDs for DVT prophylaxis. Anticoagulation is on hold due to melena. Protonix 40 mill grams IV daily ACCESS: Peripheral IV providing adequate access at this time Discussed with Dr. Kelton Chung, Tammy Pugh with gastroenterology. Discussed with bedside RN. Obtained outpatient records to determine accurate medication list. Patient is critically ill with symptomatic bradycardia and shock. This required emergent change to pacer backup rate to prevent further deterioration and . He has multiple comorbidities including chronic systolic heart failure with ejection fraction of 20%. Will remain in ICU for close observation tonight. Plan to proceed with bowel prep tomorrow when stabilized with EGD and colonoscopy on Tuesday. Critical care time 40 minutes exclusive of separately billable procedures Kim Hutchins MD Mar 22, 2018 16:11
[2018-03-22 18:48] LABS: HEMATOCRIT 24.3 % (39.0-51.0)
[2018-03-22] MEDS ORDERED: DEXTROSE 50% IN WATER 50 ML VIAL(D50) IV PUSH PRN (20:15)
[2018-03-22] MEDS ORDERED: GLUCAGON 1 MG/ML VIAL OTHER PRN (20:15)
[2018-03-22] MEDS ORDERED: CHLORHEXIDINE GLUCONATE 2 % 1 PACK (2 CLOTHS)(extra cloths) TOPICAL PRN (20:45)
[2018-03-22] MEDS: ATORVASTATIN 40 MG TAB PO SCH (21:38)
[2018-03-22 22:24] LABS: BICARBONATE 22.5 MEQ/L (21.0-32.0); CALCIUM 9.3 MG/DL (8.5-10.1); CREATININE 1.73 MG/DL (0.60-1.30)
[2018-03-23] VITALS (19 sets, daily range): BP systolic 112–145; BP diastolic 52–65; PULSE 69–70; RESP 15–23; TEMP 97.8–98.4; O2SAT 95–100
[2018-03-23] MEDS: CHLORHEXIDINE GLUCONATE 2 % 1 PACK (2 CLOTHS)(taper/protocol) TOPICAL SCH (04:00)
[2018-03-23 04:58] LABS: AUTOMATED NEUTROPHIL # 3.2 TH/MM3 (1.8-7.7); BASOPHIL # 0.1 TH/MM3 (0-0.2); EOSINOPHIL # 0.1 TH/MM3 (0-0.4); EOSINOPHIL % 1.5 % (0.0-4.0); HEMATOCRIT 24.4 % (39.0-51.0); LYMPH % 23.3 % (9.0-44.0); LYMPHOCYTE # 1.2 TH/MM3 (1.0-4.8); MEAN CELL VOLUME 90.1 FL (80.0-100.0); MEAN CORPUSCULAR HEMOGLOBIN 29.6 PG (27.0-34.0); MEAN CORPUSCULAR HGB CONC 32.8 % (32.0-36.0); MEAN PLATELET VOLUME 7.7 FL (7.0-11.0); MONO % 13.4 % (0.0-8.0); MONOCYTE # 0.7 TH/MM3 (0-0.9); NEUT % 60.8 % (16.0-70.0); PLATELET COUNT 213 TH/MM3 (150-450); RED BLOOD COUNT 2.71 MIL/MM3 (4.50-5.90); RED CELL DISTRIBUTION WIDTH 20.8 % (11.6-17.2); WHITE BLOOD COUNT 5.3 TH/MM3 (4.0-11.0)
[2018-03-23 05:29] LABS: BICARBONATE 26.3 MEQ/L (21.0-32.0); CALCIUM 9.2 MG/DL (8.5-10.1); CREATININE 1.73 MG/DL (0.60-1.30)
[2018-03-23] MEDS: LEVOTHYROXINE SODIUM 100 MCG TAB PO SCH (06:38)
--- NOTE | 2018-03-23 07:42 | PD.CARD.PN ---
Subjective Subjective Remarks Feeling "much better" today. No dyspnea at rest. No CP, abdominal pain, nausea, dizziness, palpitations. Objective Medications Item Value Date Time Atorvastatin 40 mg 03/22/182099 Calcium HS/PO 03/22/182137 (Lipitor) Furosemide 40 mg 03/22/18899 (Lasix) BID/PO 03/22/182136 Isosorbide 30 mg 03/22/1800 Mononitrate DAILY/PO 03/22/18 0804 (Imdur) Metolazone 10 mg 03/22/18 0900 (Zaroxolyn) DAILY/PO 03/22/18 1038 Spironolactone 50 mg 03/22/18899 (Aldactone) DAILY/PO 03/22/18 0804 Current Medications Medications (Trade) Dose Ordered Sig/Carlos Route Start Time Stop Time Status Last Admin (NS Flush) 2 ml UNSCH PRN IV FLUSH 03/21/18 21:30 (NS Flush) 2 ml BID IV FLUSH 03/22/18 09:00 03/22/18 21:38 (Zofran Odt) 4 mg Q6H PRN PO 03/21/18 21:45 03/22/18 13:03 (Protonix Inj) 40 mg DAILY IV PUSH 03/22/18 09:00 03/22/18 08:05 (Lipitor) 40 mg HS PO 03/22/18 21:00 03/22/18 21:38 (Coreg) 12.5 mg Q12HR PO 03/22/18 09:00 Future Hold 03/22/18 08:04 (Lasix) 40 mg BID PO 03/22/18 09:00 03/22/18 21:37 (Neurontin) 200 mg TID PO 03/22/18 09:00 03/22/18 18:28 (Imdur) 30 mg DAILY PO 03/22/18 09:00 03/22/18 08:04 (Synthroid) 100 mcg DAILY@0600 PO 03/22/18 06:00 03/23/18 06:38 (Zaroxolyn) 10 mg DAILY PO 03/22/18 09:00 03/22/18 10:38 (Aldactone) 50 mg DAILY PO 03/22/18 09:00 03/22/18 08:04 (Duoneb Neb) 1 ampule Q4HR NEB PRN NEB 03/21/18 21:45 (Roxicodone) 15 mg Q8H PRN PO 03/22/18 20:30 (D50w (Vial) Inj) 50 ml UNSCH PRN IV PUSH 03/22/18 20:15 (Glucagon Inj) 1 mg UNSCH PRN OTHER 03/22/18 20:15 (NovoLOG SUPPLEMENTAL SCALE) 1 ACHS SLIDING SCALE SQ 03/22/18 21:00 03/22/18 21:00 ([facility] Nursing Information) Patient in critical care unit? Ass... [id number] .XX 03/22/18 20:45 03/22/18 20:45 (Chlorhexidine 2% Cloth) 3 pack DAILY@04 TOPICAL 03/23/18 04:00 03/27/18 04:01 03/23/18 04:00 (Chlorhexidine 2% Cloth) 3 pack UNSCH PRN TOPICAL 03/22/18 20:45 03/27/18 20:42 Vital Signs / I&O Vital Signs Date Time Temp Pulse Resp B/P (MAP) Pulse Ox O2 Delivery O2 Flow Rate FiO2 03/23/18 06:00 69 03/23/18 04:00 69 03/23/18 04:00 97.8 69 15 132/63 (86) 100 03/23/18 02:00 69 03/23/18 00:00 69 03/23/18 00:00 98.4 69 16 112/52 (72) 100 03/22/18 22:00 69 03/22/18 20:13 99 21 03/22/18 20:00 98.4 69 27 128/58 (81) 97 03/22/18 20:00 69 03/22/18 18:40 98.3 03/22/18 18:36 69 22 127/67 (87) 100 03/22/18 18:36 69 03/22/18 18:30 69 23 117/55 (75) 97 03/22/18 18:30 69 03/22/18 18:25 69 03/22/18 18:25 69 28 120/59 (79) 98 03/22/18 18:20 69 24 119/58 (78) 99 03/22/18 18:20 69 03/22/18 15:30 38 76/38 (51) 03/22/18 15:14 98.3 40 84/40 (55) 100 03/22/18 12:02 98.6 50 18 101/54 (70) 100 I/O 03/22/18 03/22/18 03/22/18 03/23/18 03/23/18 03/23/18 07:00 15:00 23:00 07:00 15:00 23:00 Intake Total 460 ml 360 ml Output Total 700 ml Balance 460 ml -340 ml Intake Oral 460 ml 360 ml Output Urine Total 700 ml # Voids 5 2 # Bowel Movements 0 Physical Exam GENERAL: Well developed, well nourished. No acute distress. HEENT: Jugular venous pressure is normal. CHEST: Decreased breath sounds right base. CARDIAC: Regular rate and rhythm without S3, S4, or murmur. ABDOMEN: Soft, nontender, no hepatosplenomegaly. Bowel sounds present. EXTREMITIES: No clubbing, cyanosis. 1+ pretibial edema. Laboratory Laboratory Tests Test 03/22/18 11:05 03/22/18 18:10 03/22/18 18:18 03/22/18 20:40 Hemoglobin 7.5 GM/DL 8.0 GM/DL Hematocrit 22.7 % 24.3 % Nasal Screen MRSA (PCR) MRSA NOT DETECTED Blood Urea Nitrogen 53 MG/DL Creatinine 1.73 MG/DL Random Glucose 158 MG/DL Calcium Level 9.3 MG/DL Sodium Level 133 MEQ/L Potassium Level 5.1 MEQ/L Chloride Level 98 MEQ/L Carbon Dioxide Level 22.5 MEQ/L Anion Gap 13 MEQ/L Estimat Glomerular Filtration Rate 39 ML/MIN Test 03/23/18 04:09 White Blood Count 5.3 TH/MM3 Red Blood Count 2.71 MIL/MM3 Hemoglobin 8.0 GM/DL Hematocrit 24.4 % Mean Corpuscular Volume 90.1 FL Mean Corpuscular Hemoglobin 29.6 PG Mean Corpuscular Hemoglobin Concent 32.8 % Red Cell Distribution Width 20.8 % Platelet Count 213 TH/MM3 Mean Platelet Volume 7.7 FL Neutrophils (%) (Auto) 60.8 % Lymphocytes (%) (Auto) 23.3 % Monocytes (%) (Auto) 13.4 % Eosinophils (%) (Auto) 1.5 % Basophils (%) (Auto) 1.0 % Neutrophils # (Auto) 3.2 TH/MM3 Lymphocytes # (Auto) 1.2 TH/MM3 Monocytes # (Auto) 0.7 TH/MM3 Eosinophils # (Auto) 0.1 TH/MM3 Basophils # (Auto) 0.1 TH/MM3 CBC Comment DIFF FINAL Differential Comment Blood Urea Nitrogen 52 MG/DL Creatinine 1.73 MG/DL Random Glucose 125 MG/DL Calcium Level 9.2 MG/DL Sodium Level 135 MEQ/L Potassium Level 4.5 MEQ/L Chloride Level 98 MEQ/L Carbon Dioxide Level 26.3 MEQ/L Anion Gap 11 MEQ/L Estimat Glomerular Filtration Rate 39 ML/MIN Assessment and Plan Problem List: (1) Ischemic cardiomyopathy ICD Codes: I25.5 - Ischemic cardiomyopathy Status: Chronic Plan: Stable overnight. EF 20%. Patient basically at recent baseline. Has been very difficult to fully mobilize his pedal edema. Chest x-ray about 5 days ago with clear left lung king, small to moderate right pleural effusion. REC continue carvedilol; no ROMÁN-I or ARB with his CRI continue his multidrug diuretic regimen, administer IV bumetanide x one this morning (2) CAD (coronary artery disease) ICD Codes: I25.10 - Atherosclerotic heart disease of [place] coronary artery without angina pectoris Status: Chronic Plan: Overall stable CAD status. No definite angina. To continue conservative medical management of his CAD. Recommend resume daily baby aspirin when possible. (3) Chronic atrial fibrillation ICD Codes: I48.2 - Chronic atrial fibrillation Status: Chronic Plan: Basically in atrial fib most of time time since 07/2017. Patient's thromboembolic risk high. He has been recently evaluated by Dr. Dooley for ablation, felt to be poor candidate. REC continue carvedilol; resume Xarelto when possible (4) History of implantable cardioverter-defibrillator (ICD) placement ICD Codes: Z95.810 - Presence of automatic (implantable) cardiac defibrillator Status: Chronic Plan: Interrogation of his device shows normal function. Back up rate currently at 70. Recommend drop it back to 40 on discharge. Code Status full code Discussed Condition With patient and Problem Qualifiers (1) CAD (coronary artery disease): Qualified Codes: I25.10 - Atherosclerotic heart disease of [place] coronary artery without angina pectoris Scottie Xiao MD Mar 23, 2018 07:42
[2018-03-23] MEDS ORDERED: FUROSEMIDE 100 MG/10 ML VIAL IV PUSH ONE (07:45)
[2018-03-23] MEDS: INSULIN ASPART SUPPLEMENTAL SCALE SQ SCH ×4 (08:00→23:05)
[2018-03-23] MEDS: ISOSORBIDE MONONITRATE 30 MG CR TAB (IMDUR) PO SCH (09:00)
[2018-03-23] MEDS: METOLAZONE 5 MG TAB PO SCH (09:00)
[2018-03-23] MEDS: SODIUM CHLORIDE 0.9% FLUSH 10 ML FLUSH IV FLUSH SCH ×2 (09:00→20:53)
[2018-03-23] MEDS: GABAPENTIN 100 MG CAP PO SCH ×3 (09:00→18:35)
[2018-03-23] MEDS: PANTOPRAZOLE SODIUM 40 MG VIAL IV PUSH SCH (09:00)
[2018-03-23] MEDS: SPIRONOLACTONE 50 MG TAB PO SCH (09:00)
[2018-03-23] MEDS: FUROSEMIDE 40 MG TAB PO SCH ×2 (09:00→20:52)
--- NOTE | 2018-03-23 09:49 | HHI.GIFU ---
Subjective Remarks Pt transferred to ICU last night after a Halicat was called Pt received Cardizem and Amiodarone yesterday and became bradycardic and hypotensive For this reason, prep for colonoscopy was put on hold Pt is now normotensive and hear rate WNL He does report some black stools recently but has been taking iron supplements Denies nausea, vomiting, abdominal pain (Tammy Borrero) Objective Vitals I&O Vital Signs Date Time Temp Pulse Resp B/P (MAP) Pulse Ox O2 Delivery O2 Flow Rate FiO2 03/23/18 06:00 69 03/23/18 04:00 69 03/23/18 04:00 97.8 69 15 132/63 (86) 100 03/23/18 02:00 69 03/23/18 00:00 69 03/23/18 00:00 98.4 69 16 112/52 (72) 100 03/22/18 22:00 69 03/22/18 20:13 99 21 03/22/18 20:00 98.4 69 27 128/58 (81) 97 03/22/18 20:00 69 03/22/18 18:40 98.3 03/22/18 18:36 69 22 127/67 (87) 100 03/22/18 18:36 69 03/22/18 18:30 69 23 117/55 (75) 97 03/22/18 18:30 69 03/22/18 18:25 69 03/22/18 18:25 69 28 120/59 (79) 98 03/22/18 18:20 69 24 119/58 (78) 99 03/22/18 18:20 69 03/22/18 15:30 38 76/38 (51) 03/22/18 15:14 98.3 40 84/40 (55) 100 03/22/18 12:02 98.6 50 18 101/54 (70) 100 I/O 03/22/18 03/22/18 03/22/18 03/23/18 03/23/18 03/23/18 07:00 15:00 23:00 07:00 15:00 23:00 Intake Total 460 ml 360 ml Output Total 700 ml Balance 460 ml -340 ml Intake Oral 460 ml 360 ml Output Urine Total 700 ml # Voids 5 2 # Bowel Movements 0 Laboratory Laboratory Tests Test 03/22/18 11:05 03/22/18 18:10 03/22/18 18:18 03/22/18 20:40 Hemoglobin 7.5 8.0 Hematocrit 22.7 24.3 Nasal Screen MRSA (PCR) MRSA NOT DETECTED Blood Urea Nitrogen 53 Creatinine 1.73 Random Glucose 158 Calcium Level 9.3 Sodium Level 133 Potassium Level 5.1 Chloride Level 98 Carbon Dioxide Level 22.5 Anion Gap 13 Estimat Glomerular Filtration Rate 39 Test 03/23/18 04:09 White Blood Count 5.3 Red Blood Count 2.71 Hemoglobin 8.0 Hematocrit 24.4 Mean Corpuscular Volume 90.1 Mean Corpuscular Hemoglobin 29.6 Mean Corpuscular Hemoglobin Concent 32.8 Red Cell Distribution Width 20.8 Platelet Count 213 Mean Platelet Volume 7.7 Neutrophils (%) (Auto) 60.8 Lymphocytes (%) (Auto) 23.3 Monocytes (%) (Auto) 13.4 Eosinophils (%) (Auto) 1.5 Basophils (%) (Auto) 1.0 Neutrophils # (Auto) 3.2 Lymphocytes # (Auto) 1.2 Monocytes # (Auto) 0.7 Eosinophils # (Auto) 0.1 Basophils # (Auto) 0.1 CBC Comment DIFF FINAL Differential Comment Blood Urea Nitrogen 52 Creatinine 1.73 Random Glucose 125 Calcium Level 9.2 Sodium Level 135 Potassium Level 4.5 Chloride Level 98 Carbon Dioxide Level 26.3 Anion Gap 11 Estimat Glomerular Filtration Rate 39 Date/Time Source Procedure Growth Status 03/22/18 14:27 Stool Stool Stool Occult Blood (ALVA) - Final HEMOCCULT POSITIVE Complete Physical Exam HEENT: Normocephalic; atraumatic CHEST: Even/unlabored CARDIAC: RRR ABDOMEN: Obese, soft, nontender, bowel sounds active SKIN: Normal; no rash; no jaundice. [employer] G[employer] OPERATOR: Alert and oriented times three. (Tammy Borrero) Assessment and Plan Plan Assessment - Anemia- normocytic, with no obvious GIB Pt seen by our service on Tuesday and recommended to have EGD and colonoscopy on Tuesday, pt did not want to stay over the weekend and left AMA. He is now back with complaints of fatigue and still anemic. Pt had recent admission in the beginning of this month for CHF exacerbation, hgb was 6.9 and he had 2 U PRBCs- Pt does report bleeding easy from being on Xarelto and multiple episodes where he has bumped into something or been scratched and had profuse bleeding- denies any other previous history of anemia. Denies any GI symptoms at this time- does report intermittent mid abdominal pain. Also reports black stools since being started on iron supplements. Has never had EGD Last colonoscopy 4 years ago and states normal exam - CAD S/P CABG x 3, hyperlipidemia, HTN, a-fib on Xarelto, DM, hypothyroid, CHF, and toe cellulitis per attending Xarelto has been on hold since last Tuesday (03/23) Pt was transferred to ICU last night after a rapid response was called, he received Amiodarone and Cardizem and became hypotensive and bradycardic. Prep for colonoscopy was cancelled. VS are now stable, plans to prep today and EGD and colonoscopy tomorrow Plan: EGD and colonoscopy tomorrow Obtain consent Clear liquids today Golytely prep NPO after MN Monitor H/H Transfuse as indicated Hold Xarelto Further recommendations based on findings of above and clinical course Pt has been seen and examined by myself and Dr. Ryan and this note is written on his behalf (Tammy Borrero) Physician Comments As above, events of last night noted, stable at the current time. Will start bowel prep today. Further recommendations based on findings. (Myra Ryan MD) Tammy Borrero Mar 23, 2018 09:49 Myra Ryan MD Mar 23, 2018 11:35
--- NOTE | 2018-03-23 13:02 | HHI.CCPN ---
Subjective Remarks/Hospital Course 03/22: 2-year-old male with a past medical history significant for diabetes mellitus, chronic systolic heart failure (EF 20% on Echo 02/21/18), ICD placed for low EF, COPD, chronic atrial fibrillation anticoagulated on Xarelto, hypertension, hyperlipidemia, coronary artery disease s/p 3vCABG, chronic kidney disease stage III and anemia presents to the emergency department 03/16 for the evaluation of generalized weakness. He was anemic and was admitted and transfused 2 units packed red blood cells and EGD/Colonoscopy was recommended however patient did not want to stay in the hospital while xarelto was being held so he left AMA. He states he has continued to have melena stools about once every other day since discharge. He returned to the ED 03/21 when Hgb was 7.6 and was placed in observation with plan for EGD/colonoscopy tomorrow morning. Today [facility] was called when he became pale, lethargic, bradycardic and hypotensive. His heart rate was in the 40s. It was brought to the attention of providers that patient had received amiodarone 200 mg and cardizem 240 mg po, however these had been discontinued by Dr. Xiao and were no longer active medications. Dr. Chung was near the patients room when [facility] was called and brought [employer] equipment to [facility] where he reprogrammed Biotronik pacer to VVI with backup rate 70 when I was at bedside . With heart rate in 70s patient became normotensive and said he felt much better. Denies CP/SOB/ abdominal pain. Contacted Dr. Xiao office to obtain accurate med list as patient and his family were having difficulty providing it. He states he has been taking ibuprofen 800-1200 mg a day for over a year due to chronic pain. Denies nausea vomiting or abdominal pain. 03/23: Resting comfortably while working, however. Awaiting EGD and colonoscopy which is scheduled for tomorrow. Objective Vital Signs Date Time Temp Pulse Resp B/P (MAP) Pulse Ox O2 Delivery O2 Flow Rate FiO2 03/23/18 12:00 98.3 69 19 129/60 (83) 100 03/22/18 20:13 21 03/21/18 19:23 Room Air Intake and Output 03/23/18 03/23/18 03/24/18 08:00 16:00 00:00 Intake Total 360 ml Output Total 700 ml Balance -340 ml Result Diagram: 03/23/18 0409 03/23/18 0409 Other Results Microbiology Date/Time Source Procedure Growth Status 03/22/18 14:27 Stool Stool Stool Occult Blood (ALVA) - Final HEMOCCULT POSITIVE Complete Procedures None Objective Remarks GENERAL: Overweight well-developed male who upon arrival to [facility] was pale-appearing, lethargic with heart rate in the 40s. SKIN: Cool, dry. HEAD: Atraumatic. Normocephalic. EYES: Pupils equal and round, 2 mm and reactive.. No scleral icterus. No injection or drainage. ENT: No nasal bleeding or discharge. Mucous membranes pink and moist. NECK: Trachea midline. No JVD. CARDIOVASCULAR: S1-S2 regular. No murmurs rubs or gallops. RESPIRATORY: No accessory muscle use. Clear to auscultation. Breath sounds equal bilaterally. GASTROINTESTINAL: Abdomen soft, non-tender, nondistended. Bowel sounds present. MUSCULOSKELETAL: Extremities without clubbing, cyanosis. 2+ edema with weeping of bilateral lower extremities. NEUROLOGICAL: Awake and alert after he began being paced in the 70s. Oriented 3. Normal speech. Moving all extremities with no focal deficit. A/P Assessment and Plan NEURO: Chronic pain Continue oxycodone 50 mg every 8 hours as needed for pain. Peripheral neuropathy Continue gabapentin 200 mg p.o. 3 times daily RESP: COPD Prior history of tobacco abuse Nasal cannula wean as tolerated CV: Symptomatic bradycardia with shock secondary to medication administration Chronic atrial fibrillation Chronic systolic heart failure with ejection fraction 20% ICD in place Coronary artery disease with prior CABG Hypertension Hyperlipidemia Discontinue amiodarone and Cardizem which were previously discontinued as an outpatient by Dr. Xiao. Biotronik pacer set to backup rate of 70 now and now patient is normotensive and asymptomatic. Backup rate was previously set at 40 and backup rate will likely be readjusted by cardiology when he is stabilized and medications have worn off. However backup rate of 40 was inadequate in setting of GI bleed. Continue Lipitor 40 mg p.o. nightly Continue spironolactone 50 mg p.o. daily, metolazone 10 mg p.o. daily, Lasix 40 mg p.o. twice daily Coreg 12.5 mg p.o. twice daily is supposed to be an active medication but will hold for now Continue isosorbide mononitrate 30 mill grams p.o. daily Chronically anticoagulated with Xarelto for A. fib but this is on hold due to GI bleeding. GI: Melena Obesity Monitor CBC. Will hold off on bowel prep at this time until stabilized. GI following and plan for EGD colonoscopy 03/24/18 Per GI okay to resume regular diet for now and will change to clear liquid diet on and do a bowel prep that evening. FEN/RENAL: Chronic kidney disease stage III Voiding Monitor BMP ID: Monitor for signs and symptoms of infection HEME: Acute blood loss overlying chronic iron deficiency anemia Type and screen has been sent. Monitor CBC. Transfuse as indicated for hemoglobin less than 8 ENDO: Diabetes mellitus change to Medium dose sliding scale insulin ac/hs Hypothyroidism Continue Synthroid 100 mcg p.o. daily PROPH: SCDs for DVT prophylaxis. Anticoagulation is on hold due to melena. Protonix 40 mill grams IV daily ACCESS: Peripheral IV providing adequate access at this time Discussed with Dr. Kelton Chung, Dr. Xiao, Tammy Carey with gastroenterology. Discussed with bedside RN. Obtained outpatient records to determine accurate medication list. Patient is critically ill with symptomatic bradycardia and shock. This required emergent change to pacer backup rate to prevent further deterioration and . He has multiple comorbidities including chronic systolic heart failure with ejection fraction of 20%. Will remain in ICU for close observation tonight. Plan to proceed with bowel prep with EGD and colonoscopy on Tuesday. Consult and transfer to hospitalist service for further medical management, critical care will be signing off. Please reconsult if needed. Fawad Wyman MD Mar 23, 2018 13:01
[2018-03-23] MEDS ORDERED: PEG (High)/E-LYTE SOLN 4000 ML BTL PO ONE (16:00)
[2018-03-23] MEDS: ATORVASTATIN 40 MG TAB PO SCH (20:52)
[2018-03-23] MEDS ORDERED: RESP: ALBUTEROL 2.5 MG/3 ML NEB (PRN) NEB (22:00)
[2018-03-24] VITALS (8 sets, daily range): BP systolic 120–160; BP diastolic 60–82; PULSE 69–93; RESP 0–25; TEMP 97.8–98.3; O2SAT 94–100
[2018-03-24] MEDS: CHLORHEXIDINE GLUCONATE 2 % 1 PACK (2 CLOTHS)(taper/protocol) TOPICAL SCH (04:00)
[2018-03-24] MEDS: LEVOTHYROXINE SODIUM 100 MCG TAB PO SCH (05:53)
[2018-03-24 06:18] LABS: AUTOMATED NEUTROPHIL # 2.6 TH/MM3 (1.8-7.7); EOSINOPHIL # 0.2 TH/MM3 (0-0.4); EOSINOPHIL % 3.5 % (0.0-4.0); HEMOGLOBIN 7.8 GM/DL (13.0-17.0); LYMPH % 25.7 % (9.0-44.0); LYMPHOCYTE # 1.2 TH/MM3 (1.0-4.8); MEAN CELL VOLUME 90.5 FL (80.0-100.0); MEAN CORPUSCULAR HEMOGLOBIN 29.5 PG (27.0-34.0); MEAN CORPUSCULAR HGB CONC 32.6 % (32.0-36.0); MEAN PLATELET VOLUME 7.7 FL (7.0-11.0); MONOCYTE # 0.8 TH/MM3 (0-0.9); NEUT % 53.8 % (16.0-70.0); PLATELET COUNT 203 TH/MM3 (150-450); RED BLOOD COUNT 2.65 MIL/MM3 (4.50-5.90); RED CELL DISTRIBUTION WIDTH 20.8 % (11.6-17.2); WHITE BLOOD COUNT 4.8 TH/MM3 (4.0-11.0)
[2018-03-24 06:43] LABS: ALBUMIN 3.3 GM/DL (3.4-5.0); AST (GOT) 16 U/L (15-37); BICARBONATE 26.1 MEQ/L (21.0-32.0); BLOOD UREA NITROGEN 47 MG/DL (7-18); CALCIUM 9.2 MG/DL (8.5-10.1); CHLORIDE 95 MEQ/L (98-107); CREATININE 1.78 MG/DL (0.60-1.30); GLOMERULAR FILTRATION RATE 38 ML/MIN (>89); GLUCOSE,RANDOM 122 MG/DL (74-106); MAGNESIUM 2.2 MG/DL (1.5-2.5); SODIUM (NA) 136 MEQ/L (136-145)
[2018-03-24 06:44] LABS: ALT (GPT) 16 U/L (12-78)
[2018-03-24 06:45] LABS: ALKALINE PHOSPHATASE 86 U/L (45-117); TOTAL BILIRUBIN ADULT 1.6 MG/DL (0.2-1.0); TOTAL PROTEIN 7.4 GM/DL (6.4-8.2)
[2018-03-24] MEDS: RESP: ALBUTEROL 2.5 MG/IPRATROPIUM 0.5 MG NEB (SCH) NEB ×2 (07:50→14:49)
--- NOTE | 2018-03-24 07:53 | HHI.PR ---
Subjective Remarks resting comfortably with no acute distress. denies chest pain, sob or GI bleed. awaiting endoscopy. Objective Vitals Vital Signs Date Time Temp Pulse Resp B/P (MAP) Pulse Ox O2 Delivery O2 Flow Rate FiO2 03/24/18 06:00 69 03/24/18 04:00 98.3 69 20 131/60 (83) 95 03/24/18 04:00 69 03/24/18 02:00 69 03/24/18 00:00 97.9 72 0 120/82 (95) 95 03/24/18 00:00 20 03/24/18 00:00 72 03/23/18 22:00 69 03/23/18 20:59 100 03/23/18 20:00 98.4 70 144/65 (91) 95 03/23/18 20:00 70 03/23/18 18:00 69 03/23/18 17:00 69 03/23/18 16:00 69 03/23/18 16:00 98.2 69 17 117/55 (75) 100 03/23/18 15:00 69 03/23/18 14:00 69 03/23/18 13:00 69 03/23/18 12:00 98.3 69 19 129/60 (83) 100 03/23/18 12:00 69 03/23/18 11:00 69 03/23/18 10:00 69 03/23/18 09:00 69 03/23/18 08:00 69 03/23/18 08:00 98.1 69 23 145/65 (91) 100 I/O 03/23/18 03/23/18 03/23/18 03/24/18 03/24/18 03/24/18 07:00 15:00 23:00 07:00 15:00 23:00 Intake Total 360 ml 900 ml 1400 ml Output Total 700 ml 1500 ml 600 ml Balance -340 ml -600 ml 800 ml Intake Oral 360 ml 900 ml 1400 ml Output Urine Total 700 ml 1500 ml 600 ml # Voids 2 1 # Bowel Movements 0 6 Result Diagram: 03/24/18 0426 03/24/18425 Objective Remarks GENERAL: This is a well-nourished, well-developed patient, in no apparent distress. CARDIOVASCULAR: Regular rate and regular rhythm without murmurs, gallops, or rubs. RESPIRATORY: Clear to auscultation. Breath sounds equal bilaterally. No wheezes , rales, or rhonchi. GASTROINTESTINAL: Abdomen soft, non-tender, nondistended. Normal, active bowel sounds MUSCULOSKELETAL: Extremities with bilateral pedal edema. NEURO: Alert & Oriented x4 to person, place, time, situation. Moves all ext x4 Medications and IVs Inpatient Medications Acetaminophen/ Hydrocodone Bitart (Beltrami 5-325 Mg) 1 tab Q6H PRN PO PAIN SCALE 4 TO 10 Last administered on 03/22/18at 14:19; Start 03/22/18 at 13:15; Stop 03/22/18 at 20:08; Status DC Albuterol Sulfate (Albuterol Neb) 2.5 mg Q2HR NEB PRN NEB DYSPNEA; Start at 22:00 Albuterol/ Ipratropium (Duoneb Neb) 1 ampule Q6HR WHILE AWAKE NEB NEB ; Start 03/24/18 at 08:00 Amiodarone HCl (Cordarone) 200 mg DAILY PO Last administered on 03/22/18at 08:04 ; Start 03/22/18 at 09:00; Stop 03/22/18 at 13:49; Status DC Atorvastatin Calcium (Lipitor) 40 mg HS PO Last administered on 03/23/18at 20:52 ; Start 03/22/18 at 21:00 Calcium Chloride 1 gm/Sodium Chloride 110 ml @ 110 mls/hr ONCE ONCE IV ; Start 03/22/18 at 15:30; Stop 03/22/18 at 16:29; Status DC Carvedilol (Coreg) 12.5 mg Q12HR PO Last administered on 03/22/18at 08:04; Start 03/22/18 at 09:00; Status Future Hold Chlorhexidine Gluconate (Chlorhexidine 2% Cloth) 3 pack UNSCH PRN TOPICAL HYGIENIC CARE; Start 03/22/18 at 20:45; Stop 03/27/18 at 20:42 Dextrose (D50w (Vial) Inj) 50 ml UNSCH PRN IV PUSH HYPOGLYCEMIA-SEE COMMENTS; Start 03/22/18 at 20:15 Diltiazem HCl (Cardizem Cd) 240 mg DAILY PO Last administered on 03/22/18at 08:04 ; Start 03/22/18 at 09:00; Stop 03/22/18 at 13:49; Status DC Furosemide (Lasix Inj) 80 mg ONCE ONCE IV PUSH Last administered on 03/23/18 07:45; Start 03/23/18 at 07:45; Stop 03/23/18 at 07:51; Status DC Furosemide (Lasix) 40 mg BID PO Last administered on 03/23/18 20:52; Start 03/22 at 09:00 Gabapentin (Neurontin) 200 mg TID PO Last administered on 03/23/18 18:35; Start 03/22/18 at 09:00 Glucagon (Glucagon Inj) 1 mg UNSCH PRN OTHER HYPOGLYCEMIA-SEE COMMENTS; Start 03/22/18 at 20:15 Insulin Aspart (NovoLOG SUPPLEMENTAL SCALE) 1 ACHS SLIDING SCALE SQ Last administered on 03/23/18 23:05; Start 03/22/18 at 21:00 Isosorbide Mononitrate (Imdur) 30 mg DAILY PO Last administered on 03/23/18 09: 00; Start 03/22/18 at 09:00 Levothyroxine Sodium (Synthroid) 100 mcg DAILY@0600 PO Last administered on 03/24 05:53; Start 03/22/18 at 06:00 Metolazone (Zaroxolyn) 10 mg DAILY PO Last administered on 03/23/18 09:00; Start 03/22/18 at 09:00 Miscellaneous Information ([facility] Nursing Information) Patient in critical care unit? Ass... Q361D .XX Last administered on 03/22/18 20:45; Start 03/22/18 at 20:45 Ondansetron HCl (Zofran Odt) 4 mg Q6H PRN PO NAUSEA Last administered on 13:03; Start 03/21/18 at 21:45 Oxycodone HCl (Roxicodone) 15 mg Q8H PRN PO PAIN 3-10 Last administered on 23:00; Start 03/22/18 at 20:30 Pantoprazole Sodium (Protonix Inj) 40 mg DAILY IV PUSH Last administered on 03/23 09:00; Start 03/22/18 at 09:00 Polyethylene Glycol/ Electrolytes (Colyte Liq) 4,000 ml ONCE ONCE PO Last administered on 6/7/18at 18:32; Start 03/23/18 at 16:00; Stop 03/23/18 at 16:01; Status DC Sodium Chloride (NS Flush) 2 ml BID IV FLUSH Last administered on 03/23/18at 20: 53; Start 03/22/18 at 09:00 Spironolactone (Aldactone) 50 mg DAILY PO Last administered on 03/23/18at 09:00; Start 03/22/18 at 09:00 A/P Assessment and Plan Chronic pain Continue oxycodone 50 mg every 8 hours as needed for pain. Peripheral neuropathy Continue gabapentin 200 mg p.o. 3 times daily COPD Prior history of tobacco abuse Nasal cannula wean as tolerated Symptomatic bradycardia with shock secondary to medication administration Chronic atrial fibrillation Chronic systolic heart failure with ejection fraction 20% ICD in place Coronary artery disease with prior CABG Hypertension Hyperlipidemia Discontinued amiodarone and Cardizem which were previously discontinued as an outpatient by Dr. Xiao. Biotronik pacer set to backup rate of 70 now and now patient is normotensive and asymptomatic. Backup rate was previously set at 40 and backup rate will likely be readjusted by cardiology when he is stabilized and medications have worn off. Continue Lipitor 40 mg p.o. nightly Continue spironolactone 50 mg p.o. daily, metolazone 10 mg p.o. daily, Lasix 40 mg p.o. twice daily Coreg 12.5 mg p.o. twice daily is supposed to be an active medication but will hold for now Continue isosorbide mononitrate 30 mill grams p.o. daily no ROMÁN due to CKD Chronically anticoagulated with Xarelto for A. fib but this is on hold due to GI bleeding. Melena Obesity GI following and plan for EGD colonoscopy today. Chronic kidney disease stage III Voiding Monitor BMP Acute blood loss overlying chronic iron deficiency anemia H/H fairly stable- will continue to monitor. Diabetes mellitus sliding scale insulin ac/hs Hypothyroidism Continue Synthroid 100 mcg p.o. daily Discharge Planning dc planning within the next 24-48 hrs if stable- and cleared by GI and cardiology- pending GI w/u. Shabnam Caballero MD Mar 24, 2018 07:53
[2018-03-24] MEDS: INSULIN ASPART SUPPLEMENTAL SCALE SQ SCH ×2 (08:00→12:00)
--- NOTE | 2018-03-24 08:19 | PD.CARD.PN ---
Subjective Subjective Remarks Feeling "great" today. No dyspnea, CP, abdominal pain, nausea, dizziness, palpitations. Objective Medications Item Value Date Time Atorvastatin 40 mg 03/22/182099 Calcium HS/PO 03/23/182051 (Lipitor) Furosemide 40 mg 03/22/18899 (Lasix) BID/PO 03/23/182051 Isosorbide 30 mg 03/22/18899 Mononitrate DAILY/PO 03/23/18899 (Imdur) Metolazone 10 mg 03/22/18899 (Zaroxolyn) DAILY/PO 03/23/18899 Spironolactone 50 mg 03/22/18899 (Aldactone) DAILY/PO 03/23/18899 Current Medications Medications (Trade) Dose Ordered Sig/Carlos Route Start Time Stop Time Status Last Admin (NS Flush) 2 ml UNSCH PRN IV FLUSH 03/21/18 21:30 (NS Flush) 2 ml BID IV FLUSH 03/22/18 09:00 03/23/18 20:53 (Zofran Odt) 4 mg Q6H PRN PO 03/21/18 21:45 03/22/18 13:03 (Protonix Inj) 40 mg DAILY IV PUSH 03/22/18 09:00 03/23/18 09:00 (Lipitor) 40 mg HS PO 03/22/18 21:00 03/23/18 20:52 (Coreg) 12.5 mg Q12HR PO 03/22/18 09:00 Future Hold 03/22/18 08:04 (Lasix) 40 mg BID PO 03/22/18 09:00 03/23/18 20:52 (Neurontin) 200 mg TID PO 03/22/18 09:00 03/23/18 18:35 (Imdur) 30 mg DAILY PO 03/22/18 09:00 03/23/18 09:00 (Synthroid) 100 mcg DAILY@0600 PO 03/22/18 06:00 03/24/18 05:53 (Zaroxolyn) 10 mg DAILY PO 03/22/18 09:00 03/23/18 09:00 (Aldactone) 50 mg DAILY PO 03/22/18 09:00 03/23/18 09:00 (Roxicodone) 15 mg Q8H PRN PO 03/22/18 20:30 03/23/18 23:00 (D50w (Vial) Inj) 50 ml UNSCH PRN IV PUSH 03/22/18 20:15 (Glucagon Inj) 1 mg UNSCH PRN OTHER 03/22/18 20:15 (NovoLOG SUPPLEMENTAL SCALE) 1 ACHS SLIDING SCALE SQ 03/22/18 21:00 03/23/18 23:05 ([facility] Nursing Information) Patient in critical care unit? Ass... Q361D .XX 03/22/18 20:45 03/22/18 20:45 (Chlorhexidine 2% Cloth) 3 pack DAILY@04 TOPICAL 03/23/18 04:00 03/27/18 04:01 03/24/18 04:00 (Chlorhexidine 2% Cloth) 3 pack UNSCH PRN TOPICAL 03/22/18 20:45 03/27/18 20:42 (Duoneb Neb) 1 ampule Q6HR WHILE AWAKE NEB NEB 03/24/18 08:00 03/24/18 07:50 (Albuterol Neb) 2.5 mg Q2HR NEB PRN NEB 03/23/18 22:00 Vital Signs / I&O Vital Signs Date Time Temp Pulse Resp B/P (MAP) Pulse Ox O2 Delivery O2 Flow Rate FiO2 03/24/18 07:47 100 03/24/18 06:00 69 03/24/18 04:00 98.3 69 20 131/60 (83) 95 03/24/18 04:00 69 03/24/18 02:00 69 03/24/18 00:00 97.9 72 0 120/82 (95) 95 03/24/18 00:00 20 03/24/18 00:00 72 03/23/18 22:00 69 03/23/18 20:59 100 03/23/18 20:00 98.4 70 144/65 (91) 95 03/23/18 20:00 70 03/23/18 18:00 69 03/23/18 17:00 69 03/23/18 16:00 69 03/23/18 16:00 98.2 69 17 117/55 (75) 100 03/23/18 15:00 69 03/23/18 14:00 69 03/23/18 13:00 69 03/23/18 12:00 98.3 69 19 129/60 (83) 100 03/23/18 12:00 69 03/23/18 11:00 69 03/23/18 10:00 69 03/23/18 09:00 69 I/O 03/23/18 03/23/18 03/23/18 03/24/18 03/24/18 03/24/18 07:00 15:00 23:00 07:00 15:00 23:00 Intake Total 360 ml 900 ml 1400 ml Output Total 700 ml 1500 ml 600 ml Balance -340 ml -600 ml 800 ml Intake Oral 360 ml 900 ml 1400 ml Output Urine Total 700 ml 1500 ml 600 ml # Voids 2 1 # Bowel Movements 0 6 Physical Exam GENERAL: Well developed, well nourished. No acute distress. HEENT: Jugular venous pressure is normal. CHEST: Decreased breath sounds right base. CARDIAC: Regular rate and rhythm without S3, S4, or murmur. ABDOMEN: Soft, nontender, no hepatosplenomegaly. Bowel sounds present. EXTREMITIES: No clubbing, cyanosis. 1+ pretibial edema. Laboratory Laboratory Tests Test 03/24/18 04:26 White Blood Count 4.8 TH/MM3 Red Blood Count 2.65 MIL/MM3 Hemoglobin 7.8 GM/DL Hematocrit 24.0 % Mean Corpuscular Volume 90.5 FL Mean Corpuscular Hemoglobin 29.5 PG Mean Corpuscular Hemoglobin Concent 32.6 % Red Cell Distribution Width 20.8 % Platelet Count 203 TH/MM3 Mean Platelet Volume 7.7 FL Neutrophils (%) (Auto) 53.8 % Lymphocytes (%) (Auto) 25.7 % Monocytes (%) (Auto) 16.0 % Eosinophils (%) (Auto) 3.5 % Basophils (%) (Auto) 1.0 % Neutrophils # (Auto) 2.6 TH/MM3 Lymphocytes # (Auto) 1.2 TH/MM3 Monocytes # (Auto) 0.8 TH/MM3 Eosinophils # (Auto) 0.2 TH/MM3 Basophils # (Auto) 0.0 TH/MM3 CBC Comment DIFF FINAL Differential Comment Blood Urea Nitrogen 47 MG/DL Creatinine 1.78 MG/DL Random Glucose 122 MG/DL Total Protein 7.4 GM/DL Albumin 3.3 GM/DL Calcium Level 9.2 MG/DL Magnesium Level 2.2 MG/DL Alkaline Phosphatase 86 U/L Aspartate Amino Transf (AST/SGOT) 16 U/L Alanine Aminotransferase (ALT/SGPT) 16 U/L Total Bilirubin 1.6 MG/DL Sodium Level 136 MEQ/L Potassium Level 3.7 MEQ/L Chloride Level 95 MEQ/L Carbon Dioxide Level 26.1 MEQ/L Anion Gap 15 MEQ/L Estimat Glomerular Filtration Rate 38 ML/MIN Assessment and Plan Problem List: (1) Ischemic cardiomyopathy ICD Codes: I25.5 - Ischemic cardiomyopathy Status: Chronic Plan: Clinically doing well. EF 20%. Patient basically at recent baseline. Has been very difficult to fully mobilize his pedal edema. Chest x-ray about 6 days ago with clear left lung king, small to moderate right pleural effusion. REC continue carvedilol; no ROMÁN-I or ARB with his CRI continue his multidrug diuretic regimen OK for discharge from a cardiac standpoint (2) CAD (coronary artery disease) ICD Codes: I25.10 - Atherosclerotic heart disease of [place] coronary artery without angina pectoris Status: Chronic Plan: Overall stable CAD status. No definite angina. To continue conservative medical management of his CAD. Recommend resume daily baby aspirin when possible. (3) Chronic atrial fibrillation ICD Codes: I48.2 - Chronic atrial fibrillation Status: Chronic Plan: Basically in atrial fib most of time time since 07/2017. Patient's thromboembolic risk high. He has been recently evaluated by Dr. Dooley for ablation, felt to be poor candidate. REC continue carvedilol; resume Xarelto when possible or at least daily baby aspirin (4) History of implantable cardioverter-defibrillator (ICD) placement ICD Codes: Z95.810 - Presence of automatic (implantable) cardiac defibrillator Status: Chronic Plan: Interrogation of his device shows normal function. Back up rate currently at 70. Recommend drop it back to 40 on discharge, will contact rep today to do so. Code Status full code Discussed Condition With patient and Problem Qualifiers (1) CAD (coronary artery disease): Qualified Codes: I25.10 - Atherosclerotic heart disease of [place] coronary artery without angina pectoris Scottie Xiao MD Mar 24, 2018 08:19
[2018-03-24] MEDS: PANTOPRAZOLE SODIUM 40 MG VIAL IV PUSH SCH (08:33)
[2018-03-24] MEDS: SODIUM CHLORIDE 0.9% FLUSH 10 ML FLUSH IV FLUSH SCH (08:34)
[2018-03-24] MEDS: GABAPENTIN 100 MG CAP PO SCH ×2 (09:00→12:00)
--- NOTE | 2018-03-24 11:05 | GIPROC ---
[facility] [address] [facility]. [facility], [address] EGD PROCEDURE REPORT EXAM DATE: 03/24/2018 PATIENT NAME: Erwin Qiu MR #: [id number] BIRTHDATE: 1945 ATTENDING: Myra Ryan MD ORDER #: [id number] UNIVERSITY INTERN: Meseret Do and Francisca Morley STATUS: inpatient INDICATIONS: The patient is a 72 yr old male here for an EGD due to hematochezia PROCEDURE PERFORMED: EGD, diagnostic MEDICATIONS: None and Per Anesthesia. TOPICAL ANESTHETIC: none CONSENT: The patient understands the risks and benefits of the procedure and understands that these risks include, but are not limited to: sedation, allergic reaction, infection, perforation and/or bleeding. Alternative means of evaluation and treatment include, among others: physical exam, x-rays, and/or surgical intervention. The patient elects to proceed with this endoscopic procedure. medical equipment was checked for proper function. Hand hygiene and appropriate measures for infection prevention was taken. After the risks, benefits and alternatives of the procedure were thoroughly explained, Informed consent was verified, confirmed and timeout was successfully executed by the treatment team. The patient was anesthetized with topical anesthesia and the [id number] (Pedi C) endoscope was introduced through the mouth and advanced to the second portion of the duodenum. Retroflexion was performed and was normal The gastroscope was then slowly withdrawn and removed. The endoscopy was otherwise normal. ADVERSE EVENTS: There were no complications. IMPRESSIONS: Normal endoscopy otherwise RECOMMENDATIONS: No treatment PATIENT CONDITION: stable DISPOSITION: Observation REPEAT EXAM: NONE Myra Ryan MD eSigned: Myra Ryan MD 03/24/2018 11:05 AM cc: PATIENT NAME: Erwin Qiu MR#: [id number]
--- NOTE | 2018-03-24 11:08 | GIPROC ---
[facility] [address] [facility]. [facility], [address] COLONOSCOPY PROCEDURE REPORT EXAM DATE: 03/24/2018 PATIENT NAME: Erwin Qiu MR #: [id number] BIRTHDATE: 1945 ENDOSCOPIST: Myra Ryan MD ORDER #: [id number] SUPERVISOR TELEPHONE INFORMATION: Francisca Morley and Meseret Do STATUS: inpatient INDICATIONS: The patient is a 72 yr old male here for a colonoscopy due to hematochezia PROCEDURE PERFORMED: Colonoscopy, diagnostic MEDICATIONS: None and Per Anesthesia. PREP QUALITY: poor PREP TYPE:GoLytely ESTIMATED BLOOD LOSS: None CONSENT: The patient understands the risks and benefits of the procedure and understands that these risks include, but are not limited to: sedation, allergic reaction, infection, perforation and/or bleeding. Alternative means of evaluation and treatment include, among others: physical exam, x-rays, and/or surgical intervention. The patient elects to proceed with this endoscopic procedure. medical equipment was checked for proper function. Hand hygiene and appropriate measures for infection prevention was taken. After the risks, benefits and alternatives of the procedure were thoroughly explained, Informed consent was verified, confirmed and timeout was successfully executed by the treatment team. A digital exam revealed no abnormalities of the rectum The Pentax [id number] endoscope was introduced through the anus and advanced to the cecum, which was identified by both the appendix and ileocecal valve. The instrument was then slowly withdrawn as the colon was fully examined. COLON FINDINGS: A significant amount of stool was present throughout the entire examined colon. Retroflexed views revealed internal hemorrhoids The scope was then completely withdrawn from the patient and the procedure terminated. PROCEDURE WITHDRAWAL TIME:8minutes ADVERSE EVENTS: There were no complications. IMPRESSIONS: 1. Significant amount of stool was present throughout the entire examined colon, limiting the exam 2. Retroflexed views revealed internal hemorrhoids RECOMMENDATIONS: Continue surveillance RECALL: Return 1 year Colonoscopy Myra Ryan MD eSigned: Myra Ryan MD 03/24/2018 11:07 AM cc:
[2018-03-24] MEDS: METOLAZONE 5 MG TAB PO SCH (11:59)
[2018-03-24] MEDS: CARVEDILOL 12.5 MG TAB PO SCH (11:59)
[2018-03-24] MEDS: SPIRONOLACTONE 50 MG TAB PO SCH (11:59)
[2018-03-24] MEDS: FUROSEMIDE 40 MG TAB PO SCH (11:59)
[2018-03-24] MEDS: ISOSORBIDE MONONITRATE 30 MG CR TAB (IMDUR) PO SCH (11:59)
[2018-03-24] MEDS ORDERED: PHENYLEPH/NS 1000 MCG/10 ML SYR IV ONE (12:00)
[2018-03-24] MEDS ORDERED: PROPOFOL 200 MG/20 ML AMP IV ONE (12:00)
[2018-03-24] MEDS ORDERED: LIDOCAINE HCL 1% PF 5 ML SYRINGE OTHER ONE (12:00)
--- NOTE | 2018-03-24 14:33 | HHI.DS ---
Discharge Summary Admission Date Mar 21, 2018 at 21:29 Discharge Date: Mar 24, 2018 Admitting Diagnosis Symptomatic anemia (1) Symptomatic anemia ICD Code: D64.9 - Anemia, unspecified Diagnosis: Principal Status: Acute Procedures EGD/ colonoscopy Brief History - From Admission 72-year-old male with a past medical history significant for diabetes mellitus, CHF (no recent echo for comparison), COPD, atrial fibrillation anticoagulated on Xarelto, hypertension, hyperlipidemia, coronary artery disease, chronic kidney disease and anemia recently requiring transfusion presents to the emergency department for the evaluation of continued weakness. The patient was admitted on 03/16/18 where he was transfused 2 units packed red blood cells and was scheduled to have a good pain. The patient however, remain. He is returned for further evaluation. He continues to endorse weakness, dizziness and shortness of breath that is worse with activity. He denies any dark, tarry stools or melena. No chest pain. No abdominal pain. No nausea/vomiting/ diarrhea. No lateralizing signs/symptoms. No fever/chills. CBC/BMP: 03/24/18 0426 03/24/18 0426 Significant Findings Laboratory Tests Test 03/21/18 16:55 03/21/18 22:59 03/22/18 03:57 03/22/18 11:05 Red Blood Count 2.55 MIL/MM3 (4.50-5.90) Hemoglobin 7.6 GM/DL (13.0-17.0) 7.7 GM/DL (13.0-17.0) 7.6 GM/DL (13.0-17.0) 7.5 GM/DL (13.0-17.0) Hematocrit 23.1 % (39.0-51.0) 23.3 % (39.0-51.0) 23.1 % (39.0-51.0) 22.7 % (39.0-51.0) Red Cell Distribution Width 20.7 % (11.6-17.2) Monocytes (%) (Auto) 10.9 % (0.0-8.0) Prothrombin Time 18.5 SEC (9.8-11.6) Activated Partial Thromboplast Time 36.0 SEC (24.3-30.1) Blood Urea Nitrogen 59 MG/DL (7-18) Creatinine 1.83 MG/DL (0.60-1.30) Random Glucose 152 MG/DL (74-106) Albumin 3.2 GM/DL (3.4-5.0) Sodium Level 133 MEQ/L (136-145) Chloride Level 97 MEQ/L (98-107) Estimat Glomerular Filtration Rate 36 ML/MIN (>89) Test 03/22/18 18:10 03/22/18 18:18 03/22/18 20:40 03/23/18 04:09 Hemoglobin 8.0 GM/DL (13.0-17.0) 8.0 GM/DL (13.0-17.0) Hematocrit 24.3 % (39.0-51.0) 24.4 % (39.0-51.0) Blood Urea Nitrogen 53 MG/DL (7-18) 52 MG/DL (7-18) Creatinine 1.73 MG/DL (0.60-1.30) 1.73 MG/DL (0.60-1.30) Random Glucose 158 MG/DL (74-106) 125 MG/DL (74-106) Sodium Level 133 MEQ/L (136-145) 135 MEQ/L (136-145) Estimat Glomerular Filtration Rate 39 ML/MIN (>89) 39 ML/MIN (>89) Red Blood Count 2.71 MIL/MM3 (4.50-5.90) Red Cell Distribution Width 20.8 % (11.6-17.2) Monocytes (%) (Auto) 13.4 % (0.0-8.0) Test 03/24/18 04:26 Red Blood Count 2.65 MIL/MM3 (4.50-5.90) Hemoglobin 7.8 GM/DL (13.0-17.0) Hematocrit 24.0 % (39.0-51.0) Red Cell Distribution Width 20.8 % (11.6-17.2) Monocytes (%) (Auto) 16.0 % (0.0-8.0) Blood Urea Nitrogen 47 MG/DL (7-18) Creatinine 1.78 MG/DL (0.60-1.30) Random Glucose 122 MG/DL (74-106) Albumin 3.3 GM/DL (3.4-5.0) Total Bilirubin 1.6 MG/DL (0.2-1.0) Chloride Level 95 MEQ/L (98-107) Estimat Glomerular Filtration Rate 38 ML/MIN (>89) PE at Discharge GENERAL: This is a well-nourished, well-developed patient, in no apparent distress. CARDIOVASCULAR: Regular rate and regular rhythm without murmurs, gallops, or rubs. RESPIRATORY: Clear to auscultation. Breath sounds equal bilaterally. No wheezes , rales, or rhonchi. GASTROINTESTINAL: Abdomen soft, non-tender, nondistended. Normal, active bowel sounds MUSCULOSKELETAL: Extremities with bilateral pedal edema. NEURO: Alert & Oriented x4 to person, place, time, situation. Moves all ext x4 Hospital Course Chronic pain Continue oxycodone 50 mg every 8 hours as needed for pain. Peripheral neuropathy Continue gabapentin 200 mg p.o. 3 times daily COPD Prior history of tobacco abuse Nasal cannula wean as tolerated Symptomatic bradycardia with shock secondary to medication administration Chronic atrial fibrillation Chronic systolic heart failure with ejection fraction 20% ICD in place Coronary artery disease with prior CABG Hypertension Hyperlipidemia Discontinued amiodarone and Cardizem which were previously discontinued as an outpatient by Dr. Xiao. Biotronik pacer set to backup rate of 70 now and now patient is normotensive and asymptomatic. Backup rate was previously set at 40 and backup rate will likely be readjusted by cardiology when he is stabilized and medications have worn off. Continue Lipitor 40 mg p.o. nightly Continue spironolactone 50 mg p.o. daily, metolazone 10 mg p.o. daily, Lasix 40 mg p.o. twice daily Coreg 12.5 mg p.o. twice daily is supposed to be an active medication but will hold for now Continue isosorbide mononitrate 30 mill grams p.o. daily no ROMÁN due to CKD Chronically anticoagulated with Xarelto for A. fib but this is on hold due to GI bleeding. Melena Obesity GI following and plan for EGD colonoscopy today. Chronic kidney disease stage III Voiding Monitor BMP Acute blood loss overlying chronic iron deficiency anemia H/H fairly stable- will continue to monitor. Diabetes mellitus sliding scale insulin ac/hs Hypothyroidism Continue Synthroid 100 mcg p.o. daily Pt Condition on Discharge: Stable Discharge Disposition: Discharge Home Discharge Time: <= 30 minutes Discharge Instructions DIET: Follow Instructions for: Heart Healthy Diet, Diabetic Diet Activities you can perform: Regular-No Restrictions Shabnam Caballero MD Mar 24, 2018 14:33
--- NOTE | 2018-03-24 14:37 | HHI.PR ---
Addendum to Inpatient Note Addendum Reason: Additional Documentation (d/w ; patient was cleared for discharge and to resume his anticoagulation with Xarelto- patient will be discharged home with f/u by pcp,cardiology and GI.) Shabnam Caballero MD Mar 24, 2018 14:37
--- NOTE | 2018-03-24 15:52 | HHI.FF ---
Face to Face Verification Diagnosis: (1) Symptomatic anemia Home Health Nursing Order: Medical education Signs/symptoms of disease process Medication education-adverse effect Nursing assessment with vital signs I have seen patient Erwin Qiu on 03/24/18. My clinical findings support the need for the requested home health care services because: Ltd mobility - disease progression I certify that my clinical findings support that this patient is homebound because: Poor cardiac reserve Shabnam Caballero MD Mar 24, 2018 15:52
[2018-03-25] MEDS ORDERED: VASOPRESSIN 20 UNITS/ML VIAL ONE (06:09)
== END 2018-03-24 16:45 | disposition home health service (06) | DRG 812 ==
LOC: NEPC 16:25 → NEDA 18:25 → OBSVTOIN 21:29 → NEPFCDU 22:26 → HIMN 03-22 15:50
PROVIDERS: ADMIT Internal Medicine; ATTEND Internal Medicine
PROC: 0DJ08ZZ Inspection of Upper Intestinal Tract, Via Natural or Artificial Opening Endoscopic (ICD-10-PCS; principal; 2018-03-22)
PROC: 0DJD8ZZ Inspection of Lower Intestinal Tract, Via Natural or Artificial Opening Endoscopic (ICD-10-PCS; 2018-03-22)
DX: D62 Acute posthemorrhagic anemia (principal); N17.9 Acute kidney failure, unspecified; E11.22 Type 2 diabetes mellitus with diabetic chronic kidney disease; I13.0 Hypertensive heart and chronic kidney disease with heart failure and stage 1 through stage 4 chronic kidney disease, or unspecified chronic kidney disease; I50.22 Chronic systolic (congestive) heart failure; T78.2XXA Anaphylactic shock, unspecified, initial encounter; K92.1 Melena; D50.0 Iron deficiency anemia secondary to blood loss (chronic); E11.42 Type 2 diabetes mellitus with diabetic polyneuropathy; E11.51 Type 2 diabetes mellitus with diabetic peripheral angiopathy without gangrene; J44.9 Chronic obstructive pulmonary disease, unspecified; I25.10 Atherosclerotic heart disease of native coronary artery without angina pectoris; N18.3 Chronic kidney disease, stage 3 (moderate); E78.5 Hyperlipidemia, unspecified; I48.0 Paroxysmal atrial fibrillation; E03.9 Hypothyroidism, unspecified; L03.039 Cellulitis of unspecified toe; I25.5 Ischemic cardiomyopathy; T46.2X1A Poisoning by other antidysrhythmic drugs, accidental (unintentional), initial encounter; T46.1X1A Poisoning by calcium-channel blockers, accidental (unintentional), initial encounter; I48.2 Chronic atrial fibrillation; E66.9 Obesity, unspecified; K64.8 Other hemorrhoids; M19.90 Unspecified osteoarthritis, unspecified site; Y92.230 Patient room in hospital as the place of occurrence of the external cause; Z68.28 Body mass index [BMI] 28.0-28.9, adult; Z79.01 Long term (current) use of anticoagulants; Z79.4 Long term (current) use of insulin; Z85.9 Personal history of malignant neoplasm, unspecified; Z87.891 Personal history of nicotine dependence; Z88.5 Allergy status to narcotic agent; Z95.1 Presence of aortocoronary bypass graft; Z95.5 Presence of coronary angioplasty implant and graft; Z95.810 Presence of automatic (implantable) cardiac defibrillator
CPT/HCPCS: 80048; 80053; 82272; 82948; 83735; 85014; 85018; 85025; 85610; 85730; 86850; 86900; 86901; 87641; 94150; 94640; 94664; C9113; J1815; J1940; J2370; J7030